=== PATIENT | male | born 1935 | race Caucasian/White ===

== ENCOUNTER 2018-01-11 11:32 | Inpatient (IN) | payer MEDICARE ==
--- NOTE | 2018-01-11 12:59 | ED ---
Male Urogenital HPI - General Source: patient, RN notes reviewed Mode of arrival: ambulatory Limitations: no limitations <Edi Becker - Last Filed: 01/11/18 15:13> <Herve Waller - Last Filed: 01/11/18 15:57> - General Chief complaint: Urogenital Stated complaint: Male Time Seen by Provider: 01/11/18 11:53 - History of Present Illness Initial comments: 82-year-old male present emergency Department chief complaint of scrotal pain, possible infection and shaking. Patient states he started having some symptoms one week ago. He doesn't history of sepsis secondary to scrotal infection. Patient was seen by primary care physician on Friday [facility] and was started on antibiotics. Patient states that he does not feel any better. Patient states is currently on amoxicillin. Patient states that shaking started after starting antibiotics. Family states that he's been having some confusion at times but is very weak and not able to ambulate without assistance which is new for him. Patient denies headache, dizziness, blurred vision. Denies any nausea vomiting. Patient denies any chest pain or shortness breath. (Edi Becker) - Related Data Home Medications Medication Instructions Recorded Confirmed Aspirin EC [Ecotrin Low Dose] 81 mg PO DAILY 11/02/15 01/11/18 Atenolol [Tenormin] 50 mg PO DAILY 11/02/15 01/11/18 Cholecalciferol [Vitamin D3] 1,000 unit PO DAILY 11/02/15 01/11/18 Enalapril [Vasotec] 10 mg PO DAILY 11/02/15 01/11/18 clonazePAM [KlonoPIN] 0.5 mg PO BID 11/02/15 01/11/18 Cyanocobalamin [Vitamin B-12] 500 mcg PO DAILY 11/03/15 01/11/18 Simvastatin [Zocor] 80 mg PO DAILY 11/03/15 01/11/18 Vitamin C Chewable 250 mg PO DAILY 11/03/15 01/11/18 glipiZIDE [Glucotrol] 5 mg PO AC-BID 11/03/15 01/11/18 Amoxicillian Unknown Dose 1 tab PO DIRECTED 01/11/18 01/11/18 Multivitamins, Thera [Multivitamin 1 tab PO DAILY 01/11/18 01/11/18 (formulary)] Allergies Allergy/AdvReac Type Severity Reaction Status Date / Time No Known Allergies Allergy Verified 01/11/18 12:30 Review of Systems ROS Other: All systems not noted in ROS Statement are negative. <Edi Becker - Last Filed: 01/11/18 15:13> ROS Other: All systems not noted in ROS Statement are negative. <Herve Waller - Last Filed: 01/11/18 15:57> ROS Statement: Those systems with pertinent positive or pertinent negative responses have been documented in the HPI. Past Medical History Past Medical History: Diabetes Mellitus, Hypertension History of Any Multi-Drug Resistant Organisms: None Reported Past Surgical History: Appendectomy Additional Past Surgical History / Comment(s): Bilateral cataract removal and lens implants, left knee surgery with Dr. Brooks in the 1960s, electric shock treatment for depression. Past Anesthesia/Blood Transfusion Reactions: No Reported Reaction Past Psychological History: Anxiety, Depression Smoking Status: Never smoker Past Alcohol Use History: None Reported Past Drug Use History: None Reported <Edi Becker - Last Filed: 01/11/18 15:13> General Exam Limitations: no limitations General appearance: alert, in no apparent distress Head exam: Present: atraumatic, normocephalic, normal inspection Respiratory exam: Present: normal lung sounds bilaterally. Absent: respiratory distress, wheezes, rales, rhonchi, stridor Cardiovascular Exam: Present: regular rate, normal rhythm, normal heart sounds. Absent: systolic murmur, diastolic murmur, rubs, gallop, clicks GI/Abdominal exam: Present: soft, normal bowel sounds. Absent: distended, tenderness, guarding, rebound, rigid exam: Present: testicular tenderness. Absent: urethral discharge, scrotal swelling, vertical testicular lie, circumcision Back exam: Absent: CVA tenderness (R), CVA tenderness (L) Neurological exam: Present: alert, oriented X3, CN II-XII intact, reflexes normal, other (Patient has tremor). Absent: motor sensory deficit Skin exam: Present: warm, dry, intact, normal color. Absent: rash <Edi Becker - Last Filed: 01/11/18 15:13> Course <Edi Becker - Last Filed: 01/11/18 15:13> <Herve Waller - Last Filed: 01/11/18 15:57> Vital Signs 01/11/18 01/11/18 11:41 14:45 Temperature 98.4 F Pulse Rate 93 90 Respiratory 20 16 Rate Blood Pressure 162/69 158/71 O2 Sat by Pulse 95 95 Oximetry - Reevaluation(s) Reevaluation #1: 01/11/18 15:57 I proceeded [id number] evaluation the patient did discuss findings with him and his family. Acid discuss case with the hospitalist service Dr. velasquez as it did come to the emergency department see the patient I also did discuss case with Dr. Bourgeois on-call for urology. (Herve Waller) Medical Decision Making - Lab Data Result diagrams: 01/11/18 13:18 01/11/18 13:18 <Edi Becker - Last Filed: 01/11/18 15:13> - Lab Data Result diagrams: 01/11/18 13:18 01/11/18 13:18 <Herve Waller - Last Filed: 01/11/18 15:57> - Lab Data Lab Results 01/11/18 01/11/18 01/11/18 Range/Units 13:18 13:18 13:18 WBC 4.8 (3.8-10.6) k/uL RBC 4.05 L (4.30-5.90) m/uL Hgb 12.9 L (13.0-17.5) gm/dL Hct 38.5 L (39.0-53.0) % MCV 95.2 (80.0-100.0) fL MCH 31.9 (25.0-35.0) pg MCHC 33.5 (31.0-37.0) g/dL RDW 13.1 (11.5-15.5) % Plt Count 258 (150-450) k/uL Neutrophils % 68 % Lymphocytes % 24 % Monocytes % 5 % Eosinophils % 1 % Basophils % 0 % Neutrophils # 3.2 (1.3-7.7) k/uL Lymphocytes # 1.1 (1.0-4.8) k/uL Monocytes # 0.2 (0-1.0) k/uL Eosinophils # 0.1 (0-0.7) k/uL Basophils # 0.0 (0-0.2) k/uL PT (9.0-12.0) sec INR (<1.2) APTT (22.0-30.0) sec Sodium 136 L (137-145) mmol/L Potassium 5.4 H (3.5-5.1) mmol/L Chloride 99 (98-107) mmol/L Carbon Dioxide 24 (22-30) mmol/L Anion Gap 13 mmol/L BUN 49 H (9-20) mg/dL Creatinine 2.50 H (0.66-1.25) mg/dL Est GFR (CKD-EPI)AfAm 27 (>60 ml/min/1.73 sqM) Est GFR (CKD-EPI)NonAf 23 (>60 ml/min/1.73 sqM) Glucose 228 H (74-99) mg/dL Plasma Lactic Acid Mic 1.0 (0.7-2.0) mmol/L Calcium 9.6 (8.4-10.2) mg/dL Magnesium 2.1 (1.6-2.3) mg/dL Total Bilirubin 0.7 (0.2-1.3) mg/dL AST 18 (17-59) U/L ALT 27 (21-72) U/L Alkaline Phosphatase 66 (38-126) U/L Troponin I (0.000-0.034) ng/mL Total Protein 6.9 (6.3-8.2) g/dL Albumin 4.1 (3.5-5.0) g/dL Urine Color Urine Appearance (Clear) Urine pH (5.0-8.0) Ur Specific [place] (1.001-1.035) Urine Protein (Negative) Urine Glucose (UA) (Negative) Urine Ketones (Negative) Urine Blood (Negative) Urine Nitrite (Negative) Urine Bilirubin (Negative) Urine Urobilinogen (<2.0) mg/dL Ur Leukocyte Esterase (Negative) Urine RBC (0-5) /hpf Urine WBC (0-5) /hpf Ur Squamous Epith Cells (0-4) /hpf Urine Bacteria (None) /hpf 01/11/18 01/11/18 01/11/18 Range/Units 13:18 13:18 14:25 WBC (3.8-10.6) k/uL RBC (4.30-5.90) m/uL Hgb (13.0-17.5) gm/dL Hct (39.0-53.0) % MCV (80.0-100.0) fL MCH (25.0-35.0) pg MCHC (31.0-37.0) g/dL RDW (11.5-15.5) % Plt Count (150-450) k/uL Neutrophils % % Lymphocytes % % Monocytes % % Eosinophils % % Basophils % % Neutrophils # (1.3-7.7) k/uL Lymphocytes # (1.0-4.8) k/uL Monocytes # (0-1.0) k/uL Eosinophils # (0-0.7) k/uL Basophils # (0-0.2) k/uL PT 10.2 (9.0-12.0) sec INR 1.0 (<1.2) APTT 21.7 L (22.0-30.0) sec Sodium (137-145) mmol/L Potassium (3.5-5.1) mmol/L Chloride (98-107) mmol/L Carbon Dioxide (22-30) mmol/L Anion Gap mmol/L BUN (9-20) mg/dL Creatinine (0.66-1.25) mg/dL Est GFR (CKD-EPI)AfAm (>60 ml/min/1.73 sqM) Est GFR (CKD-EPI)NonAf (>60 ml/min/1.73 sqM) Glucose (74-99) mg/dL Plasma Lactic Acid Mic (0.7-2.0) mmol/L Calcium (8.4-10.2) mg/dL Magnesium (1.6-2.3) mg/dL Total Bilirubin (0.2-1.3) mg/dL AST (17-59) U/L ALT (21-72) U/L Alkaline Phosphatase (38-126) U/L Troponin I <0.012 (0.000-0.034) ng/mL Total Protein (6.3-8.2) g/dL Albumin (3.5-5.0) g/dL Urine Color Yellow Urine Appearance Cloudy (Clear) Urine pH 5.5 (5.0-8.0) Ur Specific [place] 1.012 (1.001-1.035) Urine Protein Trace H (Negative) Urine Glucose (UA) Negative (Negative) Urine Ketones Negative (Negative) Urine Blood Negative (Negative) Urine Nitrite Negative (Negative) Urine Bilirubin Negative (Negative) Urine Urobilinogen <2.0 (<2.0) mg/dL Ur Leukocyte Esterase Moderate H (Negative) Urine RBC <1 (0-5) /hpf Urine WBC 53 H (0-5) /hpf Ur Squamous Epith Cells <1 (0-4) /hpf Urine Bacteria Moderate H (None) /hpf - EKG Data EKG Comments: EKG performed at 1451 sinus rhythm with rate 93 IA interval 210 QRS 84 QT/QTC 320/397 (Edi Becker) Disposition Time of Disposition: 15:16 <Edi Becker - Last Filed: 01/11/18 15:13> <Herve Waller - Last Filed: 01/11/18 15:57> Clinical Impression: Scrotal mass, Acute renal failure, Tremor, UTI (urinary tract infection), Weakness Disposition: ADMITTED IP TO THIS HOSP Condition: Stable
[2018-01-11 13:31] LABS: Basophils % (A) 0 %; Eosinophils # (A) 0.1 k/uL (0-0.7); Eosinophils % (A) 1 %; HCT 38.5 % (39.0-53.0); HGB 12.9 gm/dL (13.0-17.5); Lymphocytes # (A) 1.1 k/uL (1.0-4.8); Lymphocytes % (A) 24 %; MCH 31.9 pg (25.0-35.0); MCHC 33.5 g/dL (31.0-37.0); MCV 95.2 fL (80.0-100.0); Mean Platelet Volume 7.2; Monocytes # (A) 0.2 k/uL (0-1.0); Monocytes % (A) 5 %; Neutrophils # (A) 3.2 k/uL (1.3-7.7); Neutrophils % (A) 68 %; Platelet Count 258 k/uL (150-450); RBC 4.05 m/uL (4.30-5.90); RDW 13.1 % (11.5-15.5); WBC 4.8 k/uL (3.8-10.6)
[2018-01-11 13:43] LABS: Albumin 4.1 g/dL (3.5-5.0); Calcium 9.6 mg/dL (8.4-10.2); Magnesium 2.1 mg/dL (1.6-2.3); Potassium 5.4 mmol/L (3.5-5.1); Total Bilirubin 0.7 mg/dL (0.2-1.3); Total Protein 6.9 g/dL (6.3-8.2)
[2018-01-11 13:44] LABS: Partial Thromboplastin Time 21.7 sec (22.0-30.0); Prothrombin Time 10.2 sec (9.0-12.0)
[2018-01-11] MEDS ORDERED: SODIUM CHLORIDE 0.9% 1,000 ML IV ONE (13:57)
[2018-01-11 14:41] LABS: Appearance,Urine Cloudy (Clear); Bacteria,Urine Moderate /hpf; Bilirubin,Urine Negative (Negative); Blood,Urine Negative (Negative); Color,Urine Yellow; Glucose,Urine (UA) Negative (Negative); Ketones,Urine Negative (Negative); Leukocyte Esterase,Urine Moderate (Negative); Nitrite,Urine Negative (Negative); PH, Urine 5.5 (5.0-8.0); Protein,Urine Trace (Negative); RBC,Urine <1 /hpf (0-5); Specific Gravity,Urine 1.012 (1.001-1.035); Squamous Epithelial Cell,Urine <1 /hpf (0-4); Urobilinogen,Urine <2.0 mg/dL (<2.0); WBC,Urine 53 /hpf (0-5)
--- NOTE | 2018-01-11 14:50 | US ---
EXAMINATION TYPE: US scrotum with doppler. Grayscale and color Doppler Duplex imaging performed of t he scrotum. DATE OF EXAM: 01/11/2018 COMPARISON: NONE CLINICAL HISTORY: Pain. EXAM MEASUREMENTS: TESTICLES: Right Testicle: 3.6 x 1.4 x 2.3 cm Left Testicle: 4.2 x 1.8 x 3.0 cm EPIDIDYMIS HEAD: Right Epididymis: 1.4 cm Left Epididymis: 1.1 cm Doppler performed to assess for testicular vascularity; good bilateral color flow and waveforms are s een. There is no evidence of testicular torsion. Presence of hydroceles: No Presence of varicoceles: No Complex area medial right testicle with increased flow and hypoechoic area within measuring 1.0 x 0.6 x 0.8 cm Cystic area with septations noted in left epididymis measuring 0.3 x 0.5 x 0.5 cm. IMPRESSION: 1. COMPLEX MASS WITHIN THE RIGHT TESTICLE WORRISOME FOR NEOPLASIA. 2. COMPLEX LEFT EPIDIDYMAL CYST. 3. UROLOGICAL CONSULT IS SUGGESTED.
[2018-01-11] MEDS ORDERED: NALOXONE 0.4 MG/ML 1 ML VIAL IV PRN (15:16)
[2018-01-11] MEDS ORDERED: HYDROcodone/APAP 5-325MG 1 EACH TAB PO PRN (15:16)
[2018-01-11] MEDS ORDERED: cefTRIAXone IN SWFI 1,000 MG/10 ML SYRINGE IVP STA (15:23)
--- NOTE | 2018-01-11 16:00 | P.HPIM ---
History of Present Illness 2-year-old male present emergency Department chief complaint of scrotal pain, possible infection and shaking. Patient was started on amoxicillin [facility] for his bronchitis and possible urinary tract infection patient doesn't exactly remember if he had any fever at that time although patient was having cough. And he was told he has UTI as well.. After taking a few doses of amoxicillin patient stopped antibiotics because he was shaking quite a bit Patient Family states that he's been having some confusion at times but is very weak and not able to ambulate without assistance which is new for him. Patient denies headache, dizziness, blurred vision. Denies any nausea vomiting. Patient denies any chest pain or shortness breath. Patient presently denied any dysuria or increased urinary frequency. Patient's urine is not significant abnormality at this time although patient was started on Rocephin which will be continued for now. Patient had a scrotal ultrasound which did show right-sided scrotal mass which he with a complex cyst. Urology was consulted Review of Systems REVIEW OF SYSTEMS: CONSTITUTIONAL: No fever, no malaise, no fatigue. HEENT: No recent visual problems or hearing problems. Denied any sore throat. CARDIOVASCULAR: No chest pain, orthopnea, PND, no palpitations, no syncope. PULMONARY: No shortness of breath, no cough, no hemoptysis. GASTROINTESTINAL: No diarrhea, no nausea, no vomiting, no abdominal pain. Normoactive bowel sounds. NEUROLOGICAL: No headaches, no weakness, no numbness. HEMATOLOGICAL: Denies any bleeding or petechiae. GENITOURINARY: As mentioned in HPI MUSCULOSKELETAL/RHEUMATOLOGICAL: Denies any joint pain, swelling, or any muscle pain. ENDOCRINE: Denies any polyuria or polydipsia. The rest of the 14-point review of systems is negative. Past Medical History Past Medical History: Diabetes Mellitus, Hypertension History of Any Multi-Drug Resistant Organisms: None Reported Past Surgical History: Appendectomy Additional Past Surgical History / Comment(s): Bilateral cataract removal and lens implants, left knee surgery with Dr. Brooks in the 1960s, electric shock treatment for depression. Past Anesthesia/Blood Transfusion Reactions: No Reported Reaction Past Psychological History: Anxiety, Depression Smoking Status: Never smoker Past Alcohol Use History: None Reported Past Drug Use History: None Reported Medications and Allergies Home Medications Medication Instructions Recorded Confirmed Type Aspirin EC [Ecotrin Low Dose] 81 mg PO DAILY 11/02/15 01/11/18 History Atenolol [Tenormin] 50 mg PO DAILY 11/02/15 01/11/18 History Cholecalciferol [Vitamin D3] 1,000 unit PO DAILY 11/02/15 01/11/18 History Enalapril [Vasotec] 10 mg PO DAILY 11/02/15 01/11/18 History clonazePAM [KlonoPIN] 0.5 mg PO BID 11/02/15 01/11/18 History Cyanocobalamin [Vitamin B-12] 500 mcg PO DAILY 11/03/15 01/11/18 History Simvastatin [Zocor] 80 mg PO DAILY 11/03/15 01/11/18 History Vitamin C Chewable 250 mg PO DAILY 11/03/15 01/11/18 History glipiZIDE [Glucotrol] 5 mg PO AC-BID 11/03/15 01/11/18 History Amoxicillian Unknown Dose 1 tab PO DIRECTED 01/11/18 01/11/18 History Multivitamins, Thera [Multivitamin 1 tab PO DAILY 01/11/18 01/11/18 History (formulary)] Allergies Allergy/AdvReac Type Severity Reaction Status Date / Time No Known Allergies Allergy Verified 01/11/18 12:30 Physical Exam Vitals: Vital Signs Temp Pulse Resp BP Pulse Ox 01/11/18 14:45 90 16 158/71 95 01/11/18 11:41 98.4 F 93 20 162/69 95 Intake and Output 01/11/18 01/11/18 01/11/18 06:59 14:59 22:59 Output Total 863 Balance -863 Output: Urine 600 Straight 600 Post Void Residual 263 Other: Weight 77.111 kg PHYSICAL EXAMINATION: GENERAL: The patient is alert and oriented x3, not in any acute distress. Well developed, well nourished. HEENT: Pupils are round and equally reacting to light. EOMI. No scleral icterus. No conjunctival pallor. Normocephalic, atraumatic. No pharyngeal erythema. No thyromegaly. CARDIOVASCULAR: S1 and S2 present. No murmurs, rubs, or gallops. PULMONARY: Chest is clear to auscultation, no wheezing or crackles. ABDOMEN: Soft, nontender, nondistended, normoactive bowel sounds. No palpable organomegaly. MUSCULOSKELETAL: No joint swelling or deformity. EXTREMITIES: No cyanosis, clubbing, or pedal edema. NEUROLOGICAL: Gross neurological examination did not reveal any focal deficits. SKIN: No rashes. Genitourinary: Patient has a right-sided small scrotal mass Results CBC & Chem 7: 01/11/18 13:18 01/11/18 13:18 Labs: Abnormal Lab Results - Last 24 Hours (Table) 01/11/18 01/11/18 01/11/18 Range/Units 13:18 13:18 13:18 RBC 4.05 L (4.30-5.90) m/uL Hgb 12.9 L (13.0-17.5) gm/dL Hct 38.5 L (39.0-53.0) % APTT 21.7 L (22.0-30.0) sec Sodium 136 L (137-145) mmol/L Potassium 5.4 H (3.5-5.1) mmol/L BUN 49 H (9-20) mg/dL Creatinine 2.50 H (0.66-1.25) mg/dL Glucose 228 H (74-99) mg/dL Urine Protein (Negative) Ur Leukocyte Esterase (Negative) Urine WBC (0-5) /hpf Urine Bacteria (None) /hpf 01/11/18 Range/Units 14:25 RBC (4.30-5.90) m/uL Hgb (13.0-17.5) gm/dL Hct (39.0-53.0) % APTT (22.0-30.0) sec Sodium (137-145) mmol/L Potassium (3.5-5.1) mmol/L BUN (9-20) mg/dL Creatinine (0.66-1.25) mg/dL Glucose (74-99) mg/dL Urine Protein Trace H (Negative) Ur Leukocyte Esterase Moderate H (Negative) Urine WBC 53 H (0-5) /hpf Urine Bacteria Moderate H (None) /hpf Assessment and Plan Plan: -Scrotal mass: Patient appears to have a complex mass in the right scrotum neurology was consulted, my suspicion is low that patient has UTI may not require any antibiotics will continue on total urology evaluation. -Acute renal failure: Secondary to prerenal azotemia most probably lisinopril will be held, patient also has hyperkalemia secondary to lisinopril patient was on IV fluids and recheck a basic metabolic profile tomorrow agents creatinine is 2.5 baseline is around 1.5. -Chronic kidney disease stage III: Secondary to diabetic nephropathy -Type 2 diabetes mellitus hold off on oral hypoglycemic agents patient is starting scale insulin -Hypertension continue atenolol hold off lisinopril because of acute renal dysfunction and hyperkalemia -Hyperlipidemia continue with atorvastatin
[2018-01-11] MEDS: SODIUM CHLORIDE 0.9% 1,000 ML IV SCH (16:21)
[2018-01-11 16:52] LABS: Glucose,Whole Blood 140 mg/dL (75-99)
[2018-01-11 17:05] VITALS: BMI 25.8
[2018-01-11] MEDS ORDERED: glipiZIDE 5 MG TAB PO SCH (17:30)
[2018-01-11] MEDS: INSULIN ASPART 100 UNIT/ML 1 ML 10 ML VIAL SQ SCH ×2 (19:00→20:46)
[2018-01-11] MEDS: clonazePAM 0.5 MG TAB PO SCH (20:38)
[2018-01-11 20:46] LABS: Glucose,Whole Blood 289 mg/dL (75-99)
[2018-01-12] MEDS ORDERED: cefTRIAXone IN SWFI 1,000 MG/10 ML SYRINGE IVP SCH
[2018-01-12] MEDS: SODIUM CHLORIDE 0.9% 1,000 ML IV SCH ×2 (06:24→17:13)
--- NOTE | 2018-01-12 07:07 | P.GSCN ---
History of Present Illness Consult date: 01/12/18 History of present illness: The patient is an 82-year-old gentleman who was brought in the hospital because of a urinary tract infection and acute renal failure. Apparently the patient was having some confusion. The patient has a hypotonic neurogenic bladder and does intermittent catheterization 3-4 times per day. did a TURP on him in 2005. Apparently the patient had some scrotal tenderness. A potential mass was identified and a scrotal ultrasound was obtained. The scrotal ultrasound suggested a right testicular mass. The patient has had some tenderness for a few days. He is not real specific as to how long. He relates it to tiight fitting jeans. He denies fever or chills. He denies difficulty with catheterization. 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 Brooks in the 1960s, electric shock treatment for depression. Past Anesthesia/Blood Transfusion Reactions: No Reported Reaction Past Psychological History: Anxiety, Depression Smoking Status: Never smoker Past Alcohol Use History: None Reported Past Drug Use History: None Reported Medications and Allergies Home Medications Medication Instructions Recorded Confirmed Type Aspirin EC [Ecotrin Low Dose] 81 mg PO DAILY 11/02/15 01/11/18 History Atenolol [Tenormin] 50 mg PO DAILY 11/02/15 01/11/18 History Cholecalciferol [Vitamin D3] 1,000 unit PO DAILY 11/02/15 01/11/18 History Enalapril [Vasotec] 10 mg PO DAILY 11/02/15 01/11/18 History clonazePAM [KlonoPIN] 0.5 mg PO BID 11/02/15 01/11/18 History Cyanocobalamin [Vitamin B-12] 500 mcg PO DAILY 11/03/15 01/11/18 History Simvastatin [Zocor] 80 mg PO DAILY 11/03/15 01/11/18 History Vitamin C Chewable 250 mg PO DAILY 11/03/15 01/11/18 History glipiZIDE [Glucotrol] 5 mg PO AC-BID 11/03/15 01/11/18 History Amoxicillian Unknown Dose 1 tab PO DIRECTED 01/11/18 01/11/18 History Multivitamins, Thera [Multivitamin 1 tab PO DAILY 01/11/18 01/11/18 History (formulary)] Allergies Allergy/AdvReac Type Severity Reaction Status Date / Time No Known Allergies Allergy Verified 01/11/18 12:30 Surgical - Exam Vital Signs Temp Pulse Resp BP Pulse Ox 98.4 F 93 20 162/69 95 01/11/18 11:41 01/11/18 11:41 01/11/18 11:41 01/11/18 11:41 01/11/18 11:41 - General well developed, well nourished, no distress - Eyes PERRL - ENT no hearing loss - Neck trachea midline - Respiratory normal expansion - Cardiovascular Rhythm: regular - Abdomen Abdomen: soft, non tender - Genitourinary The penis is normal. The scrotum was unremarkable. The left testicle and epididymis unremarkable. The right testicle on the posterior aspect isn't confluence with the epididymis is a tender mass. Clinically it feels more like an epididymal inflammation and then a separate testicular mass. - Integumentary no rash - Neurologic normal coordination, normal sensation - Musculoskeletal normal posture - Psychiatric speech is normal, memory intact Results - Labs 01/11/18 13:18 01/11/18 13:18 Abnormal Lab Results - Last 24 Hours (Table) 01/11/18 01/11/18 01/11/18 Range/Units 13:18 13:18 13:18 RBC 4.05 L (4.30-5.90) m/uL Hgb 12.9 L (13.0-17.5) gm/dL Hct 38.5 L (39.0-53.0) % APTT 21.7 L (22.0-30.0) sec Sodium 136 L (137-145) mmol/L Potassium 5.4 H (3.5-5.1) mmol/L BUN 49 H (9-20) mg/dL Creatinine 2.50 H (0.66-1.25) mg/dL Glucose 228 H (74-99) mg/dL POC Glucose (mg/dL) (75-99) mg/dL Urine Protein (Negative) Ur Leukocyte Esterase (Negative) Urine WBC (0-5) /hpf Urine Bacteria (None) /hpf 01/11/18 01/11/18 01/11/18 Range/Units 14:25 16:50 20:44 RBC (4.30-5.90) m/uL Hgb (13.0-17.5) gm/dL Hct (39.0-53.0) % APTT (22.0-30.0) sec Sodium (137-145) mmol/L Potassium (3.5-5.1) mmol/L BUN (9-20) mg/dL Creatinine (0.66-1.25) mg/dL Glucose (74-99) mg/dL POC Glucose (mg/dL) 140 H 289 H (75-99) mg/dL Urine Protein Trace H (Negative) Ur Leukocyte Esterase Moderate H (Negative) Urine WBC 53 H (0-5) /hpf Urine Bacteria Moderate H (None) /hpf Microbiology - Last 24 Hours (Table) 01/11/18 14:25 Urine Culture - Preliminary Urine,Catheterized Diabetes panel 01/11/18 Range/Units 13:18 Sodium 136 L (137-145) mmol/L Potassium 5.4 H (3.5-5.1) mmol/L Chloride 99 (98-107) mmol/L Carbon Dioxide 24 (22-30) mmol/L BUN 49 H (9-20) mg/dL Creatinine 2.50 H (0.66-1.25) mg/dL Glucose 228 H (74-99) mg/dL Calcium 9.6 (8.4-10.2) mg/dL AST 18 (17-59) U/L ALT 27 (21-72) U/L Alkaline Phosphatase 66 (38-126) U/L Total Protein 6.9 (6.3-8.2) g/dL Albumin 4.1 (3.5-5.0) g/dL Calcium panel 01/11/18 Range/Units 13:18 Calcium 9.6 (8.4-10.2) mg/dL Albumin 4.1 (3.5-5.0) g/dL Pituitary panel 01/11/18 Range/Units 13:18 Sodium 136 L (137-145) mmol/L Potassium 5.4 H (3.5-5.1) mmol/L Chloride 99 (98-107) mmol/L Carbon Dioxide 24 (22-30) mmol/L BUN 49 H (9-20) mg/dL Creatinine 2.50 H (0.66-1.25) mg/dL Glucose 228 H (74-99) mg/dL Calcium 9.6 (8.4-10.2) mg/dL Adrenal panel 01/11/18 Range/Units 13:18 Sodium 136 L (137-145) mmol/L Potassium 5.4 H (3.5-5.1) mmol/L Chloride 99 (98-107) mmol/L Carbon Dioxide 24 (22-30) mmol/L BUN 49 H (9-20) mg/dL Creatinine 2.50 H (0.66-1.25) mg/dL Glucose 228 H (74-99) mg/dL Calcium 9.6 (8.4-10.2) mg/dL Total Bilirubin 0.7 (0.2-1.3) mg/dL AST 18 (17-59) U/L ALT 27 (21-72) U/L Alkaline Phosphatase 66 (38-126) U/L Total Protein 6.9 (6.3-8.2) g/dL Albumin 4.1 (3.5-5.0) g/dL - Imaging US - kidney/bladder: image reviewed Assessment and Plan Assessment: Impression: Urinary tract infection. Neurogenic bladder. Diabetes. Renal insufficiency. Right testicular mass, epididymitis versus intratesticular mass. Given that this is tender, his urine is infected and my clinical examination I suspect this could be an epididymitis. I will review this with the radiologist however.
[2018-01-12 07:08] LABS: Glucose,Whole Blood 140 mg/dL (75-99)
[2018-01-12 07:32] LABS: HCT 33.4 % (39.0-53.0); HGB 11.1 gm/dL (13.0-17.5); MCH 31.7 pg (25.0-35.0); MCHC 33.3 g/dL (31.0-37.0); MCV 95.1 fL (80.0-100.0); Mean Platelet Volume 7.1; Platelet Count 237 k/uL (150-450); RBC 3.51 m/uL (4.30-5.90)
[2018-01-12 07:42] LABS: Calcium 8.8 mg/dL (8.4-10.2); Potassium 4.8 mmol/L (3.5-5.1)
[2018-01-12] MEDS: INSULIN ASPART 100 UNIT/ML 1 ML 10 ML VIAL SQ SCH ×4 (07:53→21:22)
[2018-01-12] MEDS ORDERED: LISINOPRIL 20 MG TAB PO SCH (09:00)
[2018-01-12] MEDS: CYANOCOBALAMIN 500 MCG TAB PO SCH (09:20)
[2018-01-12] MEDS: ATORVASTATIN 40 MG TAB PO SCH (09:20)
[2018-01-12] MEDS: ATENOLOL 50 MG TAB PO SCH (09:20)
[2018-01-12] MEDS: CHOLECALCIFEROL 1,000 UNIT TAB PO SCH (09:20)
[2018-01-12] MEDS: cefTRIAXone IN SWFI 1,000 MG/10 ML SYRINGE IVP SCH (09:21)
[2018-01-12] MEDS: clonazePAM 0.5 MG TAB PO SCH ×2 (09:21→21:22)
[2018-01-12] MEDS: ASCORBIC ACID 500 MG TAB PO SCH (09:21)
[2018-01-12 11:11] LABS: Glucose,Whole Blood 174 mg/dL (75-99)
[2018-01-12] MEDS: MULTIVITAMINS, THERA 1 EACH TAB PO SCH (12:59)
--- NOTE | 2018-01-12 14:07 | P.PN ---
Subjective 82-year-old gentleman was admitted for scrotal mass, urology evaluated the patient and they believe patient has epididymitis and patient is on IV antibiotics patient's renal function did improve. She had a Leonard catheter as recommended by urology patient is straight caths at home. Patient feels better today Constitutional: Denied any fatigue denied any fever. Cardio vascular: denied any chest pain, palpitations Gastrointestinal denied any nausea vomiting Pulmonary: Denied any shortness of breath cough Neurologic denied any new focal deficits Objective - Vital Signs Vital signs: Vital Signs Temp 98.5 F 01/12/18 06:54 Pulse 80 01/12/18 06:54 Resp 16 01/12/18 08:00 BP 145/60 01/12/18 06:54 Pulse Ox 95 01/12/18 06:54 Intake & Output 01/11/18 01/12/18 01/12/18 18:59 06:59 18:59 Intake Total 1050 237 Output Total 863 1800 200 Balance -863 -750 37 Weight 77.111 kg Intake: Intake, IV Titration 750 Amount Sodium Chloride 0.9% 1, 750 000 ml @ 75 mls/hr IV . [id number] Rx#:[id number] Oral 300 237 Output: Urine 600 1800 200 Straight 600 1800 Post Void Residual 263 Other: Voiding Method Self-Catheterization Self-Catheterization # Voids 1 - Exam GENERAL: The patient is alert and oriented x3, not in any acute distress. Well developed, well nourished. HEENT: Pupils are round and equally reacting to light. EOMI. No scleral icterus. No conjunctival pallor. Normocephalic, atraumatic. No pharyngeal erythema. No thyromegaly. CARDIOVASCULAR: S1 and S2 present. No murmurs, rubs, or gallops. PULMONARY: Chest is clear to auscultation, no wheezing or crackles. ABDOMEN: Soft, nontender, nondistended, normoactive bowel sounds. No palpable organomegaly. MUSCULOSKELETAL: No joint swelling or deformity. EXTREMITIES: No cyanosis, clubbing, or pedal edema. NEUROLOGICAL: Gross neurological examination did not reveal any focal deficits. SKIN: No rashes. Genitourinary: Patient has a right-sided small scrotal mass - Labs CBC & Chem 7: 01/12/18 06:46 01/12/18 06:46 Labs: Abnormal Lab Results - Last 24 Hours (Table) 01/11/18 01/11/18 01/11/18 Range/Units 14:25 16:50 20:44 RBC (4.30-5.90) m/uL Hgb (13.0-17.5) gm/dL Hct (39.0-53.0) % BUN (9-20) mg/dL Creatinine (0.66-1.25) mg/dL Glucose (74-99) mg/dL POC Glucose (mg/dL) 140 H 289 H (75-99) mg/dL Urine Protein Trace H (Negative) Ur Leukocyte Esterase Moderate H (Negative) Urine WBC 53 H (0-5) /hpf Urine Bacteria Moderate H (None) /hpf 01/12/18 01/12/18 01/12/18 Range/Units 06:46 06:46 07:07 RBC 3.51 L (4.30-5.90) m/uL Hgb 11.1 L (13.0-17.5) gm/dL Hct 33.4 L (39.0-53.0) % BUN 35 H (9-20) mg/dL Creatinine 1.79 H (0.66-1.25) mg/dL Glucose 136 H (74-99) mg/dL POC Glucose (mg/dL) 140 H (75-99) mg/dL Urine Protein (Negative) Ur Leukocyte Esterase (Negative) Urine WBC (0-5) /hpf Urine Bacteria (None) /hpf 01/12/18 Range/Units 11:10 RBC (4.30-5.90) m/uL Hgb (13.0-17.5) gm/dL Hct (39.0-53.0) % BUN (9-20) mg/dL Creatinine (0.66-1.25) mg/dL Glucose (74-99) mg/dL POC Glucose (mg/dL) 174 H (75-99) mg/dL Urine Protein (Negative) Ur Leukocyte Esterase (Negative) Urine WBC (0-5) /hpf Urine Bacteria (None) /hpf Microbiology - Last 24 Hours (Table) 01/11/18 14:25 Urine Culture - Preliminary Urine,Catheterized Assessment and Plan Plan: -Scrotal mass: Possible epididymitis for which patient IV antibiotics -Acute renal failure: Secondary to prerenal azotemia improved creatinine patient 's creatinine is close to his baseline continue with IV fluids patient's creatinine is presently 1.7 -Chronic kidney disease stage III: Secondary to diabetic nephropathy -Type 2 diabetes mellitus hold off on oral hypoglycemic agents patient is starting scale insulin -Hypertension continue atenolol hold off lisinopril because of acute renal dysfunction and hyperkalemia -Hyperlipidemia continue with atorvastatin
[2018-01-12 17:08] LABS: Glucose,Whole Blood 124 mg/dL (75-99)
[2018-01-12 20:14] LABS: Glucose,Whole Blood 256 mg/dL (75-99)
[2018-01-13 07:10] LABS: Glucose,Whole Blood 186 mg/dL (75-99)
[2018-01-13 07:38] LABS: HCT 36.2 % (39.0-53.0); MCH 32.4 pg (25.0-35.0); MCHC 33.2 g/dL (31.0-37.0); MCV 97.7 fL (80.0-100.0); Platelet Count 212 k/uL (150-450); WBC 4.9 k/uL (3.8-10.6)
[2018-01-13] MEDS: SODIUM CHLORIDE 0.9% 1,000 ML IV SCH ×2 (07:38→22:13)
[2018-01-13 08:08] LABS: Calcium 8.5 mg/dL (8.4-10.2); Potassium 4.9 mmol/L (3.5-5.1)
[2018-01-13] MEDS: INSULIN ASPART 100 UNIT/ML 1 ML 10 ML VIAL SQ SCH ×4 (08:41→20:27)
[2018-01-13] MEDS: CYANOCOBALAMIN 500 MCG TAB PO SCH (08:45)
[2018-01-13] MEDS: clonazePAM 0.5 MG TAB PO SCH ×2 (08:45→20:27)
[2018-01-13] MEDS: cefTRIAXone IN SWFI 1,000 MG/10 ML SYRINGE IVP SCH (08:45)
[2018-01-13] MEDS: ATENOLOL 50 MG TAB PO SCH (08:46)
[2018-01-13] MEDS: CHOLECALCIFEROL 1,000 UNIT TAB PO SCH (08:46)
[2018-01-13] MEDS: ATORVASTATIN 40 MG TAB PO SCH (08:46)
[2018-01-13] MEDS: ASCORBIC ACID 500 MG TAB PO SCH (08:46)
[2018-01-13 11:15] LABS: Glucose,Whole Blood 211 mg/dL (75-99)
[2018-01-13] MEDS: MULTIVITAMINS, THERA 1 EACH TAB PO SCH (12:52)
--- NOTE | 2018-01-13 14:18 | P.PN ---
Subjective 82-year-old gentleman was admitted for scrotal mass, urology evaluated the patient and they believe patient has epididymitis and patient is on IV antibiotics patient's renal function did improve. She had a Leonard catheter as recommended by urology patient is straight caths at home. Patient feels better today 01/13/2018 Patient doesn't have any overnight events improved creatinine elevating the urine cultures Constitutional: Denied any fatigue denied any fever. Cardio vascular: denied any chest pain, palpitations Gastrointestinal denied any nausea vomiting Pulmonary: Denied any shortness of breath cough Neurologic denied any new focal deficits Objective - Vital Signs Vital signs: Vital Signs Temp 98.2 F 01/13/18 07:33 Pulse 73 01/13/18 07:33 Resp 20 01/13/18 07:41 BP 163/72 01/13/18 07:33 Pulse Ox 98 01/13/18 07:33 Intake & Output 01/12/18 01/13/18 01/13/18 18:59 06:59 18:59 Intake Total 957 400 Output Total 1800 725 Balance -843 -725 400 Intake: IV 600 Sodium Chloride 0.9% 1, 600 000 ml @ 75 mls/hr IV . [id number] [facility] Rx#:[id number] Oral 357 400 Output: Urine 1800 725 Other: Voiding Method Indwelling Catheter Indwelling Catheter Indwelling Catheter # Voids 1 # Bowel Movements 1 - Exam GENERAL: The patient is alert and oriented x3, not in any acute distress. Well developed, well nourished. HEENT: Pupils are round and equally reacting to light. EOMI. No scleral icterus. No conjunctival pallor. Normocephalic, atraumatic. No pharyngeal erythema. No thyromegaly. CARDIOVASCULAR: S1 and S2 present. No murmurs, rubs, or gallops. PULMONARY: Chest is clear to auscultation, no wheezing or crackles. ABDOMEN: Soft, nontender, nondistended, normoactive bowel sounds. No palpable organomegaly. MUSCULOSKELETAL: No joint swelling or deformity. EXTREMITIES: No cyanosis, clubbing, or pedal edema. NEUROLOGICAL: Gross neurological examination did not reveal any focal deficits. SKIN: No rashes. Genitourinary: Patient has a right-sided small scrotal mass - Labs CBC & Chem 7: 01/13/18 07:23 01/13/18 07:23 Labs: Abnormal Lab Results - Last 24 Hours (Table) 01/12/18 01/12/18 01/13/18 Range/Units 17:04 20:11 07:08 RBC (4.30-5.90) m/uL Hgb (13.0-17.5) gm/dL Hct (39.0-53.0) % Sodium (137-145) mmol/L BUN (9-20) mg/dL Creatinine (0.66-1.25) mg/dL Glucose (74-99) mg/dL POC Glucose (mg/dL) 124 H 256 H 186 H (75-99) mg/dL 01/13/18 01/13/18 01/13/18 Range/Units 07:23 07:23 11:08 RBC 3.70 L (4.30-5.90) m/uL Hgb 12.0 L (13.0-17.5) gm/dL Hct 36.2 L (39.0-53.0) % Sodium 136 L (137-145) mmol/L BUN 29 H (9-20) mg/dL Creatinine 1.46 H (0.66-1.25) mg/dL Glucose 158 H (74-99) mg/dL POC Glucose (mg/dL) 211 H (75-99) mg/dL Microbiology - Last 24 Hours (Table) 01/11/18 14:25 Urine Culture - Preliminary Urine,Catheterized Gram Neg Bacilli 01/11/18 13:18 Blood Culture - Preliminary Blood No Growth after 24 hours Assessment and Plan Plan: -Scrotal mass: Possible epididymitis for which patient IV antibiotics -Acute renal failure: Secondary to prerenal azotemia improved creatinine patient 's creatinine is close to his baseline continue with IV fluids patient's creatinine is presently 1.4 -Chronic kidney disease stage III: Secondary to diabetic nephropathy -Type 2 diabetes mellitus hold off on oral hypoglycemic agents patient is starting scale insulin -Hypertension continue atenolol hold off lisinopril because of acute renal dysfunction and hyperkalemia -Hyperlipidemia continue with atorvastatin
[2018-01-13 14:44] VITALS: RESP 16
--- NOTE | 2018-01-13 17:14 | P.PN ---
Progress Note - Text Progress Note Date: 01/13/18 The patient has been afebrile since he was admitted and says he feels much better. His scrotal pain is also improved. Urine culture grew klebsiella pneumonia which was resistant to the amoxicillin he was started on last week. Sctotal exam confirms induration of the right epididymis and the overall findings are typical for epididymitis and not a testes mass. Imp: Right epididymitis from Klebsiella UTI and self catherization. Rec: Will discontinue Leonard catheter in AM. Will also stop Rocephin and switch to Bactrim based on urine culture sensitivities. Patient should be treated with Bactrim for another 7 days. I would like to see him in 7-10 days for followup.
[2018-01-13 17:55] LABS: Glucose,Whole Blood 197 mg/dL (75-99)
[2018-01-13] MEDS: SULFAMETHOX-TMP 800-160MG 1 EACH TAB PO SCH (20:27)
[2018-01-13 20:41] LABS: Glucose,Whole Blood 187 mg/dL (75-99)
[2018-01-14 07:11] LABS: Glucose,Whole Blood 158 mg/dL (75-99)
[2018-01-14 07:40] LABS: HCT 37.3 % (39.0-53.0); HGB 12.5 gm/dL (13.0-17.5); MCH 31.9 pg (25.0-35.0); MCHC 33.4 g/dL (31.0-37.0); MCV 95.6 fL (80.0-100.0); Mean Platelet Volume 7.3; Platelet Count 244 k/uL (150-450); RDW 13.1 % (11.5-15.5); WBC 5.4 k/uL (3.8-10.6)
[2018-01-14 07:51] LABS: Calcium 8.8 mg/dL (8.4-10.2); Potassium 4.9 mmol/L (3.5-5.1)
[2018-01-14 08:35] VITALS: BP 160/75; PULSE 66; TEMP 98.2
[2018-01-14] MEDS: INSULIN ASPART 100 UNIT/ML 1 ML 10 ML VIAL SQ SCH ×2 (08:38→13:00)
[2018-01-14] MEDS: CYANOCOBALAMIN 500 MCG TAB PO SCH (08:39)
[2018-01-14] MEDS: ATENOLOL 50 MG TAB PO SCH (08:39)
[2018-01-14] MEDS: CHOLECALCIFEROL 1,000 UNIT TAB PO SCH (08:39)
[2018-01-14] MEDS: ATORVASTATIN 40 MG TAB PO SCH (08:39)
[2018-01-14] MEDS: ASCORBIC ACID 500 MG TAB PO SCH (08:39)
[2018-01-14] MEDS: clonazePAM 0.5 MG TAB PO SCH (08:39)
[2018-01-14] MEDS: SULFAMETHOX-TMP 800-160MG 1 EACH TAB PO SCH (08:40)
[2018-01-14] MEDS: SODIUM CHLORIDE 0.9% 1,000 ML IV SCH (08:47)
[2018-01-14 11:41] LABS: Glucose,Whole Blood 209 mg/dL (75-99)
[2018-01-14] MEDS: MULTIVITAMINS, THERA 1 EACH TAB PO SCH (13:00)
--- NOTE | 2018-01-14 16:32 | P.DS ---
Providers Date of admission: 01/11/18 15:34 Expected date of discharge: 01/14/18 Attending physician: Maylin Guajardo MD Consults: 01/11/18 15:18 Consult Physician Urgent Consulting Provider: David Bourgeois Consult Reason/Comments: Scrotal mass Do you want consulting provider notified?: Already Contacted Primary care physician: [facility] Course: Final Diagnoses: -Scrotal mass: Possible epididymitis secondary to Klebsiella UTI -Acute renal failure: Secondary to prerenal azotemia improved with IV fluid hydration -Chronic kidney disease stage III: Secondary to diabetic nephropathy -Type 2 diabetes mellitus -Hypertension continue atenolol hold off lisinopril because of acute renal dysfunction and hyperkalemia -Hyperlipidemia continue with atorvastatin Hospital course: This is a 82-year-old gentleman was admitted for scrotal mass, urology evaluated the patient and they believe patient has epididymitis and patient is on IV antibiotics. Received gentle IV fluid hydration, patient's renal function improved. Significant clinical improvement. Patient has been cleared for discharge by urology. Patient is being discharged home in a stable condition with guarded prognosis. Physical exam:VSS,GENERAL: The patient is alert and oriented x3, not in any acute distress. CARDIOVASCULAR: S1 and S2 present. No murmurs, rubs, or gallops. PULMONARY: Chest is clear to auscultation, no wheezing or crackles. ABDOMEN: Soft, nontender, nondistended, normoactive bowel sounds. No palpable organomegaly. NEUROLOGICAL: Gross neurological examination did not reveal any focal deficits. Genitourinary: Patient has a right-sided small scrotal mass Microbiology 01/11/18 13:18 Blood Blood Culture - Preliminary No Growth after 72 hours 01/11/18 14:25 Urine,Catheterized Urine Culture - Final Klebsiella pneumoniae The impression and plan of care has been dictated as directed. : I performed a history and examination of this patient, discussed the same with the dictator. I agree with the dictator's note ,documented as a scribe. Any additional findings or plans will be noted. Time taken: 35 minutes Patient Condition at Discharge: Stable Plan - Discharge Summary Discharge Rx Participant: Yes New Discharge Prescriptions: New Ciprofloxacin HCl [Cipro] 500 mg PO BID 3 Days #20 tab Continue Aspirin EC [Ecotrin Low Dose] 81 mg PO DAILY clonazePAM [KlonoPIN] 0.5 mg PO BID Atenolol [Tenormin] 50 mg PO DAILY Cholecalciferol [Vitamin D3] 1,000 unit PO DAILY Cyanocobalamin [Vitamin B-12] 500 mcg PO DAILY Vitamin C Chewable 250 mg PO DAILY glipiZIDE [Glucotrol] 5 mg PO AC-BID Simvastatin [Zocor] 80 mg PO DAILY Multivitamins, Thera [Multivitamin (formulary)] 1 tab PO DAILY Discontinued Amoxicillin 500 mg PO Q12HR Discharge Medication List Aspirin EC [Ecotrin Low Dose] 81 mg PO DAILY 11/02/15 [History] Atenolol [Tenormin] 50 mg PO DAILY 11/02/15 [History] Cholecalciferol [Vitamin D3] 1,000 unit PO DAILY 11/02/15 [History] clonazePAM [KlonoPIN] 0.5 mg PO BID 11/02/15 [History] Cyanocobalamin [Vitamin B-12] 500 mcg PO DAILY 11/03/15 [History] Simvastatin [Zocor] 80 mg PO DAILY 11/03/15 [History] Vitamin C Chewable 250 mg PO DAILY 11/03/15 [History] glipiZIDE [Glucotrol] 5 mg PO AC-BID 11/03/15 [History] Multivitamins, Thera [Multivitamin (formulary)] 1 tab PO DAILY 01/11/18 [History ] Ciprofloxacin HCl [Cipro] 500 mg PO BID 3 Days #20 tab 01/14/18 [Rx] Follow up Appointment(s)/Referral(s): Jey Mondragon MD [STAFF PHYSICIAN] - 01/21/18 9:10 am (office will be mailing information regarding appointment) [facility] [Primary Care Provider] - 01/19/18 (office will call later in the day with time for FridayJanuary 19) Ambulatory/Diagnostic Orders: Complete Blood Count w/diff [LAB.AMB] Time Frame: 3 Days, Location: Determined By Patient Activity/Diet/Wound Care/Special Instructions: MIL inhibitor on hold related to renal function Diet: Consistent carb Accu-Cheks before meals and at bedtime Discharge Disposition: HOME SELF-CARE
== END 2018-01-14 15:00 | disposition home or self-care (01) | DRG 728 ==
LOC: EC 11:32 → 3SUR 15:34
PROVIDERS: ADMIT Internal Medicine; ATTEND Internal Medicine
DX: N45.1 Epididymitis (principal); N17.9 Acute kidney failure, unspecified; E11.21 Type 2 diabetes mellitus with diabetic nephropathy; E87.5 Hyperkalemia; N39.0 Urinary tract infection, site not specified; B96.1 Klebsiella pneumoniae [K. pneumoniae] as the cause of diseases classified elsewhere; E11.22 Type 2 diabetes mellitus with diabetic chronic kidney disease; E78.5 Hyperlipidemia, unspecified; F32.9 Major depressive disorder, single episode, unspecified; F41.9 Anxiety disorder, unspecified; I12.9 Hypertensive chronic kidney disease with stage 1 through stage 4 chronic kidney disease, or unspecified chronic kidney disease; N18.3 Chronic kidney disease, stage 3 (moderate); N31.9 Neuromuscular dysfunction of bladder, unspecified; Z96.1 Presence of intraocular lens; Z98.42 Cataract extraction status, left eye; Z98.41 Cataract extraction status, right eye; Z79.899 Other long term (current) drug therapy; Z79.84 Long term (current) use of oral hypoglycemic drugs; Z79.82 Long term (current) use of aspirin; T46.4X5A Adverse effect of angiotensin-converting-enzyme inhibitors, initial encounter
CPT/HCPCS: 36415; 51798; 76870; 80048; 80053; 81001; 83605; 83735; 84484; 85025; 85027; 85610; 85730; 87040; 87077; 87086; 87186; 93005; 93975; 96361; 96374; 99285

== ENCOUNTER → 2018-01-16 | Outpatient (CLI) | payer MEDICARE ==
[2018-01-16 11:42] LABS: Basophils % (A) 0 %; Eosinophils # (A) 0.1 k/uL (0-0.7); Eosinophils % (A) 1 %; HCT 39.1 % (39.0-53.0); HGB 12.9 gm/dL (13.0-17.5); Lymphocytes # (A) 1.4 k/uL (1.0-4.8); Lymphocytes % (A) 21 %; MCH 32.2 pg (25.0-35.0); MCHC 33.1 g/dL (31.0-37.0); MCV 97.2 fL (80.0-100.0); Mean Platelet Volume 7.1; Monocytes # (A) 0.3 k/uL (0-1.0); Monocytes % (A) 5 %; Neutrophils # (A) 4.7 k/uL (1.3-7.7); Neutrophils % (A) 72 %; Platelet Count 297 k/uL (150-450); RBC 4.03 m/uL (4.30-5.90); RDW 13.2 % (11.5-15.5); WBC 6.5 k/uL (3.8-10.6)
[2018-01-16 12:00] LABS: Calcium 9.4 mg/dL (8.4-10.2); Potassium 5.3 mmol/L (3.5-5.1)
== END | disposition home or self-care (01) ==
LOC: LABWHC1 10:38
PROVIDERS: ATTEND Nurse Practitioner
DX: N39.0 Urinary tract infection, site not specified (principal); N19 Unspecified kidney failure
CPT/HCPCS: 36415; 80048; 85025

== ENCOUNTER → 2019-03-10 | Outpatient (CLI) | payer OTHER ==
--- NOTE | 2019-03-10 11:37 | US ---
EXAMINATION TYPE: US kidneys/renal and bladder DATE OF EXAM: 03/10/2019 COMPARISON: US 11/04/2015 CLINICAL HISTORY: R10.13 Dyspepsia. Patient self catheterizes EXAM MEASUREMENTS: Right Kidney: 9.1 x 5.3 x 4.9 cm Left Kidney: 9.9 x 4.5 x 4.9 cm Right Kidney: No hydronephrosis, cystic area visualized 5.1 x 5.3 x 5.1 cm, the focus is anechoic wit h increased through transmission and imperceptible wall Left Kidney: No hydronephrosis. Cystic area visualized 2.1 x 2.1 x 1.8 cm, increased through transmis tony, anechoic, imperceptible wall Bladder: Bladder wall appears thickened Bilateral Jets seen: Yes No ascites evident. Kidneys show normal cortical medullary differentiation. IMPRESSION: Simple cyst within the kidneys. Correlate to exclude cystitis.
== END | disposition home or self-care (01) ==
LOC: RADUSWWP 09:52
DX: N28.1 Cyst of kidney, acquired (principal)
CPT/HCPCS: 76770

== ENCOUNTER → 2022-10-30 | Outpatient (CLI) | payer OTHER ==
[2022-10-30 14:59] LABS: HGB 12.4 g/dL (13.0-17.0); MCH 30.8 pg (27.0-32.0); MCHC 32.6 g/dL (32.0-37.0); MCV 94.5 fL (80.0-97.0); Mean Platelet Volume 10.5 fL (9.5-12.2); NRBC Per 100 WBC 0 /100 WBCS (0.0-0.0); Platelet Count 158 X 10*3/uL (140-440); RBC 4.02 X 10*6/uL (4.40-5.60); RDW 11.9 % (11.5-14.5)
[2022-10-30 16:25] LABS: African American GFR (CKD) 27.6 (60.0-200.0); Anion Gap 10.8 mmol/L (10.00-18.00); Blood Urea Nitrogen 42.8 mg/dL (9.0-27.0); Carbon Dioxide 26.8 mmol/L (20.0-27.5); Non-African American GFR(CKD) 23.8 (60.0-200.0); Potassium 5.4 mmol/L (3.5-5.5)
== END | disposition home or self-care (01) ==
LOC: LABWHC1 08:54
PROVIDERS: ATTEND Internal Medicine Interventional Cardiology
DX: Z01.812 Encounter for preprocedural laboratory examination (principal); I25.10 Atherosclerotic heart disease of native coronary artery without angina pectoris
CPT/HCPCS: 36415; 80051; 82565; 84520; 85027

== ENCOUNTER 2022-11-07 07:38 | Day surgery (SDC) | payer MEDICARE, OTHER ==
[~2022-11-07 07:38] MED LIST: ALPRAZolam 0.25 MG TAB PO PRN; ALPRAZolam 0.5 MG TAB PO PRN; ASPIRIN 325 MG TAB PO ONE; ATORVASTATIN 80 MG TAB PO ONE; HEPARIN SODIUM,PORCINE 10,000 UNIT in SODIUM CHLORIDE 0.9% 1,000 ML IRRIGATION PRN; HEPARIN SODIUM,PORCINE 2,500 UNIT in SODIUM CHLORIDE 0.9% 250 ML IRRIGATION PRN; NITROGLYCERIN SL TABS 0.4 MG TAB SUBLINGUAL PRN
[2022-11-07] MEDS: SODIUM CHLORIDE 0.9% 1,000 ML in EMPTY BAG 1 BAG IV SCH ×2 (08:09→21:56)
[2022-11-07 08:12] LABS: Glucose,Whole Blood 98 mg/dL (70-110)
[2022-11-07] MEDS ORDERED: MIDAZOLAM 2 MG/2 ML VIAL IV ONE (11:22)
[2022-11-07] MEDS ORDERED: LIDOCAINE 1% INJ 10MG/ML (5 ML VIAL-PF) SQ ONE (11:26)
[2022-11-07] MEDS ORDERED: HEPARIN SODIUM 1,000 UN/ML (10ML VL) IV ONE (11:40)
[2022-11-07] MEDS ORDERED: fentaNYL (PF) 50 MCG/ML 2 ML AMP ONE (11:45)
[2022-11-07] MEDS ORDERED: fentaNYL (PF) 50 MCG/ML 2 ML AMP IV ONE (11:46)
[2022-11-07] MEDS ORDERED: NITROGLYCERIN 1000MCG/10ML SYRINGE INTRACORON ONE (11:55)
[2022-11-07] MEDS ORDERED: IOPAMIDOL-370 125ML BTL INJ ONE (12:02)
[2022-11-07] MEDS ORDERED: CLOPIDOGREL 75 MG TAB ONE (12:06)
[2022-11-07] MEDS ORDERED: NITROGLYCERIN SL TABS 0.4 MG TAB SUBLINGUAL PRN (12:09)
[2022-11-07] MEDS ORDERED: ZOLPIDEM 5 MG TAB PO PRN (12:09)
[2022-11-07] MEDS ORDERED: MAG HYDROX/AL HYDROX/SIMETH 30 ML CUP PO PRN (12:09)
[2022-11-07] MEDS ORDERED: ATROPINE SULFATE 0.1 MG/ML 10ML SYRINGE IV PRN (12:09)
[2022-11-07] MEDS ORDERED: RX INFO: IV CONTRAST WAS GIVEN 1 EACH MISC MISCELLANE PRN (12:09)
[2022-11-07] MEDS ORDERED: CLOPIDOGREL 75 MG TAB PO ONE (12:10)
[2022-11-07] MEDS ORDERED: SODIUM CHLORIDE 0.9% 1,000 ML in EMPTY BAG 1 BAG IV SCH (12:15)
--- NOTE | 2022-11-07 12:18 | P.PCN ---
Date of Procedure: 11/07/22 Operative Findings: CARDIAC CATHETERIZATION AND PERCUTANEOUS CORONARY INTERVENTION PERFORMING PHYSICIAN: Rg Martinez MD, RPVI PROCEDURE PERFORMED: 1. Selective right and left coronary angiogram 2. Left heart catheterization 3. Successful stenting of proximal LCx using 2.75 x 15 mm Xience MABEL which with an excellent angiographic results 4. Selective right common femoral artery angiogram INDICATION: This is an 87-year-old gentleman who was diagnosed recently with cardiomyopathy. He underwent myocardial perfusion imaging stress test and that showed at least moderate area of ischemia involving the lateral wall of the LV. In the light of that a heart catheterization was advised. COMPLICATION: None APPROACH: Right common femoral artery. The patient has no right radial pulse LEVEL OF SEDATION: Moderate with the sedation time off 43 minutes PROCEDURE DESCRIPTION: After obtaining an informed consent the patient was brought to the cardiac laborer steel handling. The right common femoral artery was cannulated using micropuncture technique, the micropuncture wire passed easily then I placed a 6-Malay sheath at the right common femoral artery. After that I did selective right and left coronary angiogram. Selective right coronary angiogram was performed using JR4 catheter and selective left coronary angiogram was performed using JL4 catheters. Left heart catheterization was performed using the JL4 catheter which cross the aortic valve then I did pulled back across the valve. The procedure was completed with no complication. SELECTIVE CORONARY ANGIOGRAM: The right coronary artery: Large-caliber vessel and a dominant vessel. The ostial RCA has a lesion appeared to be extremely calcified and eccentric in the range of 99.9%. As a matter of fact the RCA has collateral from the left coronary system. The mid and distal RCA appears to have mild to moderate diffuse disease only. The RCA distally bifurcates into PDA and PLV branches both appeared to be angiographically normal Left main: Large-caliber vessel. Its angiographically normal. Bifurcates into an LCx and LAD The left circumflex: Large caliber vessel and nondominant vessel. The proximal LCx just before the bifurcation of OM1 has a critical lesion appeared to be in the range of 80% appeared to be very focal and calcified. The circumflex after that gives rises into an OM1 and OM to both appeared to have mild disease only. Distally the circumflex gives rises into an appointment 3 which appeared to be a large caliber vessel was mild disease only. The left anterior descending artery: Large caliber vessel. The proximal LAD has mild disease only. The mid LAD has a tubular lesion appeared to be in the range of 60-70%. The LAD distally has mild disease only. The LAD proximally gives rises into a large diagonal branch which has mild disease only. HEMODYNAMICS: The LVEDP was 2 mmHg was no significant gradient across the aortic valve PCI OF THE LCx: Anticoagulation was initiated using heparin with continuous ACT monitoring. Subsequently I engaged the left main using a CLS guiding catheter. I did to wire the left circumflex using 2 wires giving the tortuosity and calcifications of the lesion. I did wired using a run-through wire and whisper wire. After that balloon angioplasty was performed using 2.5 x 12 mm balloon before I deployed 2.75 x 15 mm stent where the stent was positioned under fluoroscopy guidance and deployed under its nominal pressure. The following angiogram showed an excellent angiographic results was ISMAEL-3 flow on the procedure was completed with no complication CONCLUSION: 1. Recent diagnosis of cardiomyopathy in this 87-year-old gentleman who underwent myocardial perfusion imaging stress test revealed moderate area of reversibility laterally. 2. critical disease involving the ostial RCA. Critical disease involving the proximal LCx. Intermediate disease involving the LAD. 3. successful stenting of the LCx as described above with an excellent angiographic results. I did not perform stenting of the RCA in the light of complexity of the lesion and limits amount of contrast we have. The patient GFR is 25 POSTPROCEDURE MANAGEMENT: #1 dual antiplatelet therapy using aspirin and Plavix for at least 6 months #2 aggressive cholesterol control #3 follow-up with the patient
[2022-11-07 14:08] LABS: Glucose,Whole Blood 99 mg/dL (70-110)
[2022-11-07 14:49] VITALS: BMI 21.4
[2022-11-07 16:45] LABS: Glucose,Whole Blood 96 mg/dL (70-110)
[2022-11-07] MEDS: glipiZIDE 10 MG TAB PO SCH (16:59)
[2022-11-07] MEDS: buPROPion SR 100 MG TABLET.ER PO SCH ×2 (16:59→22:01)
[2022-11-07 19:46] LABS: Glucose,Whole Blood 205 mg/dL (70-110)
[2022-11-07] MEDS: clonazePAM 0.5 MG TAB PO SCH (20:13)
[2022-11-07] MEDS: hydrALAZINE HCL 25 MG TAB PO SCH (20:14)
[2022-11-08 06:08] LABS: Glucose,Whole Blood 73 mg/dL (70-110)
[2022-11-08 06:29] LABS: Glucose,Whole Blood 89 mg/dL (70-110)
[2022-11-08 07:42] LABS: Calcium 8.7 mg/dL (8.4-10.2); Potassium 4.5 mmol/L (3.5-5.1)
--- NOTE | 2022-11-08 08:34 | P.DS ---
Providers Attending physician: Rg Martinez Consults: 11/07/22 12:09 Consult Physician Routine Consulting Provider: [facility] Consult Reason/Comments: Post Interventional Patient Do you want consulting provider notified?: Already Contacted Primary care physician: [facility] Course: The patient is a pleasant 87-year-old gentleman who was seen in the office recently and was diagnosed with severe cardiomyopathy. He underwent yesterday heart catheterization and was found to have critical disease involving the RCA and severe disease involving the LCx an intermediate disease involving the LAD. He underwent successful stenting of the LCx. He underwent myocardial perfusion imaging stress test before and that showed lateral ischemia. He was seen this morning. He is asymptomatic. His hemogram is a stable. He is going to be discharged on dual antiplatelet therapy and statin and will follow- up with the patient next week in the office Plan - Discharge Summary Discharge Rx Participant: Yes New Discharge Prescriptions: New Clopidogrel [Plavix] 75 mg PO DAILY #90 tab Continue Aspirin EC [Ecotrin Low Dose] 81 mg PO DAILY clonazePAM [KlonoPIN] 1.5 tab PO BID Cholecalciferol [Vitamin D3 (25 Mcg = 1000 Iu)] 1,000 unit PO DAILY Cyanocobalamin [Vitamin B-12] 500 mcg PO DAILY Vitamin C Chewable 250 mg PO DAILY glipiZIDE [Glucotrol] 10 mg PO AC-BID Simvastatin [Zocor] 80 mg PO DAILY Multivitamins, Thera [Multivitamin (formulary)] 1 tab PO DAILY Metoprolol Succinate (ER) [Toprol XL] 25 mg PO DAILY hydrALAZINE HCL [Apresoline] 25 mg PO BID lisinopriL 2.5 mg PO DAILY buPROPion HCL [buPROPion HCL SR] 100 mg PO TID Furosemide [Lasix] 40 mg PO DAILY amLODIPine [Norvasc] 10 mg PO DAILY Discharge Medication List Aspirin EC [Ecotrin Low Dose] 81 mg PO DAILY 11/02/15 [History] Cholecalciferol [Vitamin D3 (25 Mcg = 1000 Iu)] 1,000 unit PO DAILY 11/02/15 [History] clonazePAM [KlonoPIN] 1.5 tab PO BID 11/02/15 [History] Cyanocobalamin [Vitamin B-12] 500 mcg PO DAILY 11/03/15 [History] Simvastatin [Zocor] 80 mg PO DAILY 11/03/15 [History] Vitamin C Chewable 250 mg PO DAILY 11/03/15 [History] glipiZIDE [Glucotrol] 10 mg PO AC-BID 11/03/15 [History] Multivitamins, Thera [Multivitamin (formulary)] 1 tab PO DAILY 01/11/18 [History] Furosemide [Lasix] 40 mg PO DAILY 11/06/22 [History] Metoprolol Succinate (ER) [Toprol XL] 25 mg PO DAILY 11/06/22 [History] amLODIPine [Norvasc] 10 mg PO DAILY 11/06/22 [History] buPROPion HCL [buPROPion HCL SR] 100 mg PO TID 11/06/22 [History] hydrALAZINE HCL [Apresoline] 25 mg PO BID 11/06/22 [History] lisinopriL 2.5 mg PO DAILY 11/06/22 [History] Clopidogrel [Plavix] 75 mg PO DAILY #90 tab 11/08/22 [Rx] Follow up Appointment(s)/Referral(s): Rg Martinez MD [STAFF PHYSICIAN] - 1 Week (APPOINTMENT MADE ON October @ 4:45PM ) Patient Instructions/Handouts: *[facility] - After Heart Catheterization - Exploration Geologist Instructions, Moderate Sedation (DC), After Radial Heart Catheterization (GEN) Activity/Diet/Wound Care/Special Instructions: *NO LIFTING, PUSHING, OR PULLING ANYTHING OVER 5 POUNDS FOR 5 DAYS *NO DRIVING FOR 3 DAYS *YOU CAN SHOWER TOMORROW BUT DO NOT SUBMERSE YOUR PUNCTURE SITE IN WATER FOR A FEW DAYS TO PREVENT INFECTION - SO NO TUB BATHS, POOLS HOT TUBS, DISHES...ETC *ANY SIGNS OF BLEEDING (HARDNESS, SWELLING, OR EXCESSIVE BRUISING) HOLD DIRECT PRESSURE ON YOUR PUNCTURE SITE AND COME TO THE NEAREST EMERGENCY ROOM TO GET YOUR PUNCTURE SITE LOOKED AT - DO NOT DRIVE YOURSELF! EITHER CALL EMS OR HAVE SOMEONE DRIVE YOU!
[2022-11-08] MEDS ORDERED: ASCORBIC ACID 500 MG TAB PO SCH (09:00)
[2022-11-08] MEDS ORDERED: MULTIVITAMINS, THERA 1 EACH TAB PO SCH (09:00)
[2022-11-08] MEDS ORDERED: ASPIRIN 81 MG PO SCH (09:00)
[2022-11-08] MEDS ORDERED: METOPROLOL SUCCINATE (ER) 25 MG TAB.ER.24H PO SCH (09:00)
[2022-11-08] MEDS ORDERED: ATORVASTATIN 40 MG TAB PO SCH (09:00)
[2022-11-08] MEDS ORDERED: CLOPIDOGREL 75 MG TAB PO SCH (09:00)
[2022-11-08] MEDS ORDERED: amLODIPine 10 MG TAB PO SCH (09:00)
[2022-11-08] MEDS ORDERED: FUROSEMIDE 40 MG TAB PO SCH (09:00)
[2022-11-08] MEDS ORDERED: CYANOCOBALAMIN 500 MCG TAB PO SCH (09:00)
[2022-11-08] MEDS ORDERED: CHOLECALCIFEROL 25 MCG (1000 IU) TABLET PO SCH (09:00)
[2022-11-08] MEDS: clonazePAM 0.5 MG TAB PO SCH (09:19)
[2022-11-08] MEDS: hydrALAZINE HCL 25 MG TAB PO SCH (09:19)
[2022-11-08] MEDS: buPROPion SR 100 MG TABLET.ER PO SCH (09:19)
[2022-11-08] MEDS: glipiZIDE 10 MG TAB PO SCH (09:19)
[2022-11-08 10:21] VITALS: BP 123/67; PULSE 98; RESP 19; TEMP 97.6
== END 2022-11-08 10:19 | disposition home health service (06) ==
LOC: CATHCVL 07:38 → 3SCARD 12:00 → CATHCVL 11-08 10:19
PROVIDERS: ATTEND Internal Medicine Interventional Cardiology
DX: I42.9 Cardiomyopathy, unspecified (principal); I11.0 Hypertensive heart disease with heart failure; E78.5 Hyperlipidemia, unspecified; E11.9 Type 2 diabetes mellitus without complications; I34.0 Nonrheumatic mitral (valve) insufficiency; Z79.01 Long term (current) use of anticoagulants; Z79.899 Other long term (current) drug therapy
CPT/HCPCS: 94760; 93458; 80048; C9600; C1769 ×3; C1887; C1894; C1725; C1874; J2250; S0106 ×2; J2001; J3010; J1644; Q9967

== ENCOUNTER 2023-01-01 10:35 | Day surgery (SDC) | payer MEDICARE ==
[~2023-01-01 10:35] MED LIST changes: -ASPIRIN 325 MG TAB PO ONE; +ASPIRIN 325 MG TAB PO STA; -ATORVASTATIN 80 MG TAB PO ONE; +ATORVASTATIN 80 MG TAB PO STA
[2023-01-01] MEDS ORDERED: SODIUM CHLORIDE 0.9% 1,000 ML IV ONE (10:50)
[2023-01-01 11:03] LABS: Glucose,Whole Blood 170 mg/dL (70-110)
[2023-01-01 11:37] LABS: Calcium 9.1 mg/dL (8.4-10.2); HCT 33.4 % (39.0-53.0); HGB 11.6 gm/dL (13.0-17.5); MCH 33.9 pg (25.0-35.0); MCHC 34.8 g/dL (31.0-37.0); MCV 97.2 fL (80.0-100.0); Mean Platelet Volume 7.7; Platelet Count 173 k/uL (150-450); RBC 3.44 m/uL (4.30-5.90); RDW 13.1 % (11.5-15.5); WBC 6.1 k/uL (3.8-10.6)
[2023-01-01 11:57] LABS: Eosinophils # (M) 0.31 k/uL (0-0.7); Lymphocytes # (M) 2.81 k/uL (1.0-4.8); Monocytes # (M) 0.61 k/uL (0-1.0); Neutrophils # (M) 2.38 k/uL (1.3-7.7); Neutrophils % (M) 39 %; Nucleated Red Blood Cells 0 /100 WBC (0-0); Total Cells Counted 100
[2023-01-01] MEDS ORDERED: LIDOCAINE 1% INJ 10MG/ML (20 ML MDV) ONE (13:44)
[2023-01-01] MEDS ORDERED: HEPARIN SODIUM 1,000 UN/ML (10ML VL) ONE (13:46)
[2023-01-01] MEDS ORDERED: MIDAZOLAM 2 MG/2 ML VIAL IVP ONE (14:01)
[2023-01-01] MEDS ORDERED: LIDOCAINE 1% INJ 10MG/ML (20 ML MDV) SQ ONE (14:01)
[2023-01-01] MEDS: HEPARIN SODIUM 1,000 UN/ML (10ML VL) IVP ONE ×2 (14:10→14:46)
[2023-01-01] MEDS ORDERED: NITROGLYCERIN 1000MCG/10ML SYRINGE INTRACORON ONE (15:15)
[2023-01-01] MEDS ORDERED: IOPAMIDOL-370 100ML BTL INJ ONE (15:27)
[2023-01-01] MEDS ORDERED: CLOPIDOGREL 75 MG TAB ONE (15:36)
[2023-01-01] MEDS ORDERED: VITAMIN B COMPLEX PO PRN (16:09)
[2023-01-01] MEDS ORDERED: VIT C PO PRN (16:09)
[2023-01-01] MEDS ORDERED: ATROPINE SULFATE 0.1 MG/ML 10ML SYRINGE IV PRN (16:10)
[2023-01-01] MEDS ORDERED: RX INFO: IV CONTRAST WAS GIVEN 1 EACH MISC MISCELLANE PRN (16:10)
[2023-01-01] MEDS ORDERED: NITROGLYCERIN SL TABS 0.4 MG TAB SUBLINGUAL PRN (16:10)
[2023-01-01] MEDS ORDERED: MAG HYDROX/AL HYDROX/SIMETH 30 ML CUP PO PRN (16:10)
[2023-01-01] MEDS ORDERED: ZOLPIDEM 5 MG TAB PO PRN (16:10)
[2023-01-01] MEDS ORDERED: SODIUM CHLORIDE 0.9% 1,000 ML in EMPTY BAG 1 BAG IV SCH (16:15)
--- NOTE | 2023-01-01 16:25 | P.PCN ---
Date of Procedure: 01/01/23 Operative Findings: PERCUTANEOUS CORONARY INTERVENTION Performing physician Rg Martinez M.D. Procedure Performed: 1. Successful stenting of the mid LAD using 3.0 x 28 mm Xience drug-eluting stent with an excellent angiographic results with adjunctive use of atherectomy 2. Intravascular ultrasound of the left anterior descending artery 3. Placement of Impella CP in the left ventricle 4. Right common femoral artery angiogram and ultrasound guided access of the right common femoral artery Indication: This is a pleasant 87-year-old gentleman who continues to be functional and in good physical and mental shape with history of CAD and severe ischemic cardiomyopathy who underwent a workup recently and that showed severe triple- vessel coronary artery disease. The patient underwent PCI of the left circumflex coronary artery. He was treated medically for the disease in the LAD and right coronary artery because he remains symptomatic despite of maximize medical treatment including anti-ischemic medications and cardiomyopathy medications he was brought today to undergo PCI of the LAD and right coronary artery. Approach: Right common femoral artery Complications: None Level of Sedation: Moderate with a sedation length of [] minutes Procedure Discussion: After obtaining an informed consent the patient was brought to the cardiac labor operator. The right groin was prepped and lab in the usual sterile fashion. Subse quently local anesthesia was achieved by injecting 2% lidocaine subcutaneously. The right common femoral artery was cannulated using micropuncture technique under ultrasound guidance, the micropuncture wire passed easily then I placed initially the micropuncture sheath over the wire. I did selective right common femoral artery angiogram with injection through the micropuncture sheath and that initially showed that the puncture site appeared to be on the low side. The sheath was pulled out and manual pressure was held for about 5 minutes. Subsequently I accessed the right common femoral artery again with the same technique and selective right common femoral artery angiogram showed better position and entry of the sheath. At that point I did place a 6-Martiniquais sheath at the right common femoral artery. Anticoagulation was initiated using heparin with continuous ACT monitoring. Subsequently I did decided to perform initially an FFR of the left anterior descending artery because angiographically the lesion appears to be in the anteromedial to severe range. After zeroing the Doppler wire and equalizing between the Doppler wire and the guiding catheter we did an iFR and that came in to be ischemic at 0.63. At that point I decided to intervene on the left anterior descending artery. The lesion in the right coronary artery by its ostium is a critical. Subsequently and because the ejection fraction was extremely low I decided to place hemodynamic support. At that point the Doppler wire and the guiding catheter were withdrawn out. I did upgrade my 6-Martiniquais sheath into a 14-Martiniquais sheath using stiff all 35 wire after I placed two Perclose devices. After that I did across the aortic valve using a pigtail catheter over 035 wire then I did exchange my 035 wire into 018 wire using the pigtail catheter. Then after that I did advance the Impella to the left ventricle over the 018 wire under fluoroscopy guidance. After that I did puncture the 14-Martiniquais sheath using micropuncture at 10:00. The micro- puncture wire passed easily then after that I place the micropuncture sheath over the micropuncture wire then I place an 035 wire through the micropuncture sheath and then I placed a 7-Martiniquais sheath. Then I did engage the left main using JL4 guiding catheter. I did wire the LAD using initially a run-through wire. Intravascular ultrasound was performed and showed that the LAD was extremely calcified. It was calcified by fluoroscopy as well. I decided to modify the vessel using atherectomy. I did wire the LAD using the atherectomy wire and the wire was advanced all the way to the distal portion. I did after that atherectomy of the LAD using low-speed 3 times. After that I did decided to do lithotripsy balloon. I did inflated to 3.0 mm balloon after the balloon was advanced over the run-through wire. The balloon inflated under 4 paul. The lesion was extremely tight and finally open up under 6 paul. After that I decided to stent the lesion using 3.0 x 28 mm stent where the stent was positioned under fluoroscopy guidance and deployed under fluoroscopy guidance. The following angiogram showed excellent angiographic results. By the end of the procedure we reached about 60 mL of contrast and the patient's maximum use of contrast was a 70 mL. At that point the intervention on the right coronary artery was aborted. Subsequently I did pull the Impella from the LV and then from the 14-Martiniquais sheath. Then I did pull the 14-Martiniquais sheath over 035 wire and I did deploy one Perclose and one Angio-Seal by the end we achieved a great hemostasis. The procedure was completed was no complication Postprocedure Management: 1. Dual antiplatelet therapy for at least 6 month using aspirin and Plavix 2. Aggressive cholesterol control 3. Risk factors modification
[2023-01-01] MEDS: SODIUM CHLORIDE 0.9% 1,000 ML in EMPTY BAG 1 BAG IV SCH (17:13)
[2023-01-01 17:34] LABS: Glucose,Whole Blood 230 mg/dL (70-110)
[2023-01-01] MEDS: glipiZIDE 10 MG TAB PO SCH (18:39)
[2023-01-01 20:25] LABS: Glucose,Whole Blood 183 mg/dL (70-110)
[2023-01-01] MEDS: clonazePAM 0.5 MG TAB PO SCH (20:32)
[2023-01-01] MEDS: hydrALAZINE HCL 25 MG TAB PO SCH (20:32)
[2023-01-01] MEDS: buPROPion SR 100 MG TABLET.ER PO SCH (21:37)
[2023-01-02] MEDS: SODIUM CHLORIDE 0.9% 1,000 ML in EMPTY BAG 1 BAG IV SCH (04:32)
[2023-01-02 06:16] LABS: Glucose,Whole Blood 70 mg/dL (70-110)
[2023-01-02] MEDS: glipiZIDE 10 MG TAB PO SCH (06:20)
[2023-01-02 06:27] LABS: Glucose,Whole Blood 91 mg/dL (70-110)
[2023-01-02] MEDS ORDERED: FUROSEMIDE 20 MG TAB PO SCH (09:00)
[2023-01-02] MEDS ORDERED: METOPROLOL SUCCINATE (ER) 25 MG TAB.ER.24H PO SCH (09:00)
[2023-01-02] MEDS ORDERED: ATORVASTATIN 20 MG TAB PO SCH (09:00)
[2023-01-02] MEDS ORDERED: CLOPIDOGREL 75 MG TAB PO SCH (09:00)
[2023-01-02] MEDS: hydrALAZINE HCL 25 MG TAB PO SCH (09:09)
[2023-01-02] MEDS: clonazePAM 0.5 MG TAB PO SCH (09:09)
[2023-01-02] MEDS: buPROPion SR 100 MG TABLET.ER PO SCH (09:10)
--- NOTE | 2023-01-02 09:21 | P.DS ---
Providers Attending physician: Rg Martinez Consults: 01/01/23 16:11 Consult Physician Routine Consulting Provider: [facility] Consult Reason/Comments: Post Interventional Patient Do you want consulting provider notified?: Already Contacted Primary care physician: Stated None Hospital Course: The patient is a pleasant 87-year-old gentleman who underwent yesterday successful stenting of the mid left anterior descending artery with a good angiographic results and with no complication. He was seen this morning. He is asymptomatic and he stated that the shortness of breath has improved. He reports no pain in the chest. The right groin is soft and nontender with no bruises. From the cardiovascular standpoint of view, the patient is going to be discharged home on dual antiplatelet therapy and statin. I will follow-up with the patient next week in the office. Plan - Discharge Summary Discharge Rx Participant: No New Discharge Prescriptions: Continue Aspirin EC [Ecotrin Low Dose] 81 mg PO 1400 clonazePAM [KlonoPIN] 0.25 tab PO BID glipiZIDE [Glucotrol] 10 mg PO AC-BID Simvastatin [Zocor] 40 mg PO DAILY Metoprolol Succinate (ER) [Toprol XL] 25 mg PO DAILY hydrALAZINE HCL [Apresoline] 25 mg PO TID lisinopriL 2.5 mg PO QAM buPROPion HCL [buPROPion HCL SR] 100 mg PO TID Furosemide [Lasix] 20 mg PO QAM amLODIPine [Norvasc] 10 mg PO 1400 Clopidogrel [Plavix] 75 mg PO DAILY #90 tab Vitamin B Complex W/ Vit C 1 tab PO DAILY PRN PRN Reason: supplements Discharge Medication List Aspirin EC [Ecotrin Low Dose] 81 mg PO 1400 11/02/15 [History] clonazePAM [KlonoPIN] 0.25 tab PO BID 11/02/15 [History] Simvastatin [Zocor] 40 mg PO DAILY 11/03/15 [History] glipiZIDE [Glucotrol] 10 mg PO AC-BID 11/03/15 [History] Furosemide [Lasix] 20 mg PO QAM 11/06/22 [History] Metoprolol Succinate (ER) [Toprol XL] 25 mg PO DAILY 11/06/22 [History] amLODIPine [Norvasc] 10 mg PO 1400 11/06/22 [History] hydrALAZINE HCL [Apresoline] 25 mg PO TID 11/06/22 [History] lisinopriL 2.5 mg PO QAM 11/06/22 [History] Clopidogrel [Plavix] 75 mg PO DAILY #90 tab 11/08/22 [Rx] Vitamin B Complex W/ Vit C 1 tab PO DAILY PRN 12/31/22 [History] buPROPion HCL [buPROPion HCL SR] 100 mg PO TID 12/31/22 [History] Follow up Appointment(s)/Referral(s): Rg Martinez MD [STAFF PHYSICIAN] - 1 Week
[2023-01-02 09:28] VITALS: BP 104/43; PULSE 77; RESP 20; TEMP 97.8
[2023-01-02 10:25] VITALS: BMI 21.1
[2023-01-02 11:34] LABS: Glucose,Whole Blood 141 mg/dL (70-110)
[2023-01-02] MEDS ORDERED: ASPIRIN 81 MG PO SCH (14:00)
[2023-01-02] MEDS ORDERED: amLODIPine 10 MG TAB PO SCH (14:00)
== END 2023-01-02 11:45 | disposition home health service (06) ==
LOC: CATHCVL 10:35 → 3SCARD 16:52 → CATHCVL 01-02 11:45
PROVIDERS: ATTEND Internal Medicine Interventional Cardiology
DX: I25.10 Atherosclerotic heart disease of native coronary artery without angina pectoris (principal); I25.5 Ischemic cardiomyopathy; Z79.82 Long term (current) use of aspirin; Z79.84 Long term (current) use of oral hypoglycemic drugs; Z79.899 Other long term (current) drug therapy; Z95.5 Presence of coronary angioplasty implant and graft
CPT/HCPCS: 94760; 92978; 33990; 80048; 82565; 85025; C1769 ×6; C9602; C1760 ×2; C1887; C1894 ×2; C1753; C1724; C1874; C1761; J2250; S0106 ×2; J2001; J1644; Q9967

== ENCOUNTER 2023-01-15 06:40 | Emergency (ER) | payer MEDICARE ==
[2023-01-15 06:43] LABS: Glucose,Whole Blood 204 mg/dL (70-110)
[2023-01-15 06:51] VITALS: RESP 16; TEMP 98.6
--- NOTE | 2023-01-15 06:57 | ED ---
General Adult HPI - General Chief complaint: Recheck/Abnormal Lab/Rx Stated complaint: Hypoglycemia Time Seen by Provider: 01/15/23 06:45 Source: patient, EMS, RN notes reviewed Mode of arrival: EMS Limitations: no limitations - History of Present Illness Initial comments: 87-year-old male presents emergency department via EMS chief complaint of hyperglycemia. Patient reportedly was altered this morning which family called 911. Patient son have blood sugar at 52. Patient is given 1 amp blood sugar has improved patient only complaint now is that he is cold. He denies headache, dizziness, chest pain, shortness breath, fever, chills, cough or cold symptoms no abdominal pain no leg pain. Patient states he had a cardiac stent placed on the . - Related Data Home Medications Medication Instructions Recorded Confirmed Aspirin EC [Ecotrin Low Dose] 81 mg PO 1400 11/02/15 01/01/23 clonazePAM [KlonoPIN] 0.25 tab PO BID 11/02/15 12/31/22 Simvastatin [Zocor] 40 mg PO DAILY 11/03/15 12/31/22 glipiZIDE [Glucotrol] 10 mg PO AC-BID 11/03/15 01/01/23 Furosemide [Lasix] 20 mg PO QAM 11/06/22 01/01/23 Metoprolol Succinate (ER) [Toprol 25 mg PO DAILY 11/06/22 12/31/22 XL] amLODIPine [Norvasc] 10 mg PO 1400 11/06/22 12/31/22 hydrALAZINE HCL [Apresoline] 25 mg PO TID 11/06/22 12/31/22 lisinopriL 2.5 mg PO QAM 11/06/22 12/31/22 Vitamin B Complex W/ Vit C 1 tab PO DAILY PRN 12/31/22 12/31/22 buPROPion HCL [buPROPion HCL SR] 100 mg PO TID 12/31/22 12/31/22 Previous Rx's Medication Instructions Recorded Clopidogrel [Plavix] 75 mg PO DAILY #90 tab 11/08/22 Cephalexin [Keflex] 500 mg PO Q8HR #21 cap 01/15/23 Allergies Allergy/AdvReac Type Severity Reaction Status Date / Time No Known Allergies Allergy Verified 01/01/23 10:56 Review of Systems ROS Statement: Those systems with pertinent positive or pertinent negative responses have been documented in the HPI. ROS Other: All systems not noted in ROS Statement are negative. Past Medical History Past Medical History: Coronary Artery Disease (CAD), Cancer, Diabetes Mellitus, Hypertension Additional Past Medical History / Comment(s): kidney disease, urinary retention- self caths atleast bid to help completely empty bladder but urinates throughout the day, skin ca, self cath himself morning and night for the last ten years. History of Any Multi-Drug Resistant Organisms: None Reported Past Surgical History: Appendectomy, Heart Catheterization With Stent Additional Past Surgical History / Comment(s): Bilateral cataract removal and lens implants, left knee surgery with Dr. Brooks in the 1960s, electric shock treatment for depression,lt carpel tunnel,skin CA removed Past Anesthesia/Blood Transfusion Reactions: No Reported Reaction Date of Last Stent Placement:: Past Psychological History: Anxiety, Depression Smoking Status: Former smoker Past Alcohol Use History: None Reported Past Drug Use History: None Reported - Past Family History Mother History Unknown: Yes Family Medical History: Cancer Father History Unknown: Yes Family Medical History: Cancer Additional Family Medical History / Comment(s): lung CA General Exam Limitations: no limitations General appearance: alert, in no apparent distress Head exam: Present: atraumatic, normocephalic, normal inspection Eye exam: Present: normal appearance, PERRL, EOMI. Absent: scleral icterus, conjunctival injection, periorbital swelling ENT exam: Present: normal exam, mucous membranes moist Neck exam: Present: normal inspection, full ROM. Absent: tenderness, meningismus, lymphadenopathy Respiratory exam: Present: normal lung sounds bilaterally. Absent: respiratory distress, wheezes, rales, rhonchi, stridor Cardiovascular Exam: Present: regular rate, normal rhythm, normal heart sounds. Absent: systolic murmur, diastolic murmur, rubs, gallop, clicks GI/Abdominal exam: Present: soft, normal bowel sounds. Absent: distended, tenderness, guarding, rebound, rigid Course Vital Signs 01/15/23 01/15/23 01/15/23 06:45 07:20 08:31 Temperature 98.6 F Pulse Rate 83 82 80 Respiratory 16 16 16 Rate Blood Pressure 161/99 180/76 176/87 O2 Sat by Pulse 100 99 99 Oximetry 01/15/23 01/15/23 01/15/23 09:02 10:04 10:24 Temperature Pulse Rate 89 73 85 Respiratory 16 16 16 Rate Blood Pressure 159/68 144/58 O2 Sat by Pulse 98 100 99 Oximetry 01/15/23 11:01 Temperature 98.6 F Pulse Rate 87 Respiratory 16 Rate Blood Pressure 133/75 O2 Sat by Pulse 99 Oximetry EKG Findings - EKG Comments: EKG Findings:: EKG performed at 6:51 sinus rhythm with first-degree block rate of 82 NV 2:30 one QRS 117 QT/QTC 3 cm 426 and Q waves in lead 3, PVC - EKG Results: EKG: interpreted by KILLIAN Medical Decision Making - Medical Decision Making Was pt. sent in by a medical professional or institution (, PA, MIXING MACHINE TENDER, urgent care, hospital, or skilled nursing...) When possible be specific @ -No Did you speak to anyone other than the patient for history (EMS, parent, family, police, friend...)? What history was obtained from this source @ -EMS Did you review nursing and triage notes (agree or disagree)? Why? @ -I reviewed and agree with nursing and triage notes Were old charts reviewed (outside hosp., previous admission, EMS record, old EKG, old radiological studies, urgent care reports/EKG's, skilled nursing records)? Report findings @ -Prior laboratory studies reviewed Differential Diagnosis (chest pain, altered mental status, abdominal pain women, abdominal pain men, vaginal bleeding, weakness, fever, dyspnea, syncope, headache, dizziness, GI bleed, back pain, seizure, CVA, palpatations, mental health, musculoskeletal)? @ -nDifferential Weakness: Hypoglycemia, shock, sepsis, hyponatremia, anemia, infection, NC, ETOH, adverse medicine reaction, overdose, stroke, this is not meant to be an all-inclusive list. EKG interpreted by me (3pts min.). @ -As above X-rays interpreted by me (1pt min.). @ -Chest x-ray shows bibasilar atelectasis CT interpreted by me (1pt min.). @ -CT her brain does not show any acute process U/S interpreted by me (1pt. min.). @ -None done What testing was considered but not performed or refused? (CT, X-rays, U/S, labs)? Why? @ -None What meds were considered but not given or refused? Why? @ -None Did you discuss the management of the patient with other professionals (professionals i.e. , PA, MIXING MACHINE TENDER, lab, RT, psych nurse, social services aide, sprigger, teacher, policy officer, watch case polisher)? Give summary @ -No Was smoking cessation discussed for >3mins.? @ -No Was critical care preformed (if so, how long)? @ -No Were there social determinants of health that impacted care today? How? ( Homelessness, low income, unemployed, alcoholism, drug addiction, transportation, low edu. Level, literacy, decrease access to med. care, usp, rehab)? @ -No Was there de-escalation of care discussed even if they declined (Discuss DNR or withdrawal of care, Hospice)? DNR status @ -No What co-morbidities impacted this encounter? (DM, HTN, Smoking, COPD, CAD, Cancer, CVA, ARF, Chemo, Hep., AIDS, mental health diagnosis, sleep apnea, morbid obesity)? @ -Diabetes and heart disease Was patient admitted / discharged? Hospital course, mention meds given and route, prescriptions, significant lab abnormalities, going to OR and other pertinent info. @ -Discharge I had a long discussion with patient, patient's and son the room patient follows found to be hypoglycemic symptoms have resolved after receiving amp of dextrose from EMS. Patient tolerated standing, and bleeding he was able to self cath as he normally does. Patient is a 14 white cells in his urinalysis. Son was concerned that he is more weak but he was back to his baseline we did a discussion regarding his diabetic medications as she's been taken his glipizide in the evening and having hypoglycemic events. Patient will hold his night time glipizide will reevaluate PCP and his medications. Appointment was made prior to discharge. Undiagnosed new problem with uncertain prognosis? @ -No Drug Therapy requiring intensive monitoring for toxicity (Heparin, Nitro, Insulin, Cardizem)? @ -No Were any procedures done? @ -No Diagnosis/symptom? @ -Hyperglycemic, UTI Acute, or Chronic, or Acute on Chronic? @ -Acute Uncomplicated (without systemic symptoms) or Complicated (systemic symptoms)? @ -Complicated Side effects of treatment? @ -No Exacerbation, Progression, or Severe Exacerbation? @ -No Poses a threat to life or bodily function? How? (Chest pain, USA, NC, pneumonia, PE, COPD, DKA, ARF, appy, cholecystitis, CVA, Diverticulitis, Homicidal, Suicidal, threat to staff... and all critical care pts) @ -No - Lab Data Result diagrams: 01/15/23 06:59 01/15/23 06:59 Lab Results 01/15/23 01/15/23 01/15/23 Range/Units 06:42 06:59 06:59 WBC 4.3 (3.8-10.6) k/uL RBC 3.09 L (4.30-5.90) m/uL Hgb 10.6 L (13.0-17.5) gm/dL Hct 30.5 L (39.0-53.0) % MCV 98.5 (80.0-100.0) fL MCH 34.3 (25.0-35.0) pg MCHC 34.8 (31.0-37.0) g/dL RDW 12.8 (11.5-15.5) % Plt Count 218 (150-450) k/uL MPV 7.3 Neutrophils % 61 % Lymphocytes % 28 % Monocytes % 6 % Eosinophils % 1 % Basophils % 0 % Neutrophils # 2.6 (1.3-7.7) k/uL Lymphocytes # 1.2 (1.0-4.8) k/uL Monocytes # 0.3 (0-1.0) k/uL Eosinophils # 0.0 (0-0.7) k/uL Basophils # 0.0 (0-0.2) k/uL PT 10.2 (9.0-12.0) sec INR 1.0 (<1.2) APTT 22.4 (22.0-30.0) sec Sodium (137-145) mmol/L Potassium (3.5-5.1) mmol/L Chloride (98-107) mmol/L Carbon Dioxide (22-30) mmol/L Anion Gap mmol/L BUN (9-20) mg/dL Creatinine (0.66-1.25) mg/dL Est GFR (CKD-EPI)AfAm (>60 ml/min/1.73 sqM) Est GFR (CKD-EPI)NonAf (>60 ml/min/1.73 sqM) Glucose (74-99) mg/dL POC Glucose (mg/dL) 204 H (70-110) mg/dL POC Glu Broom Man ID Phuong Lizarraga Plasma Lactic Acid Mic (0.7-2.0) mmol/L Calcium (8.4-10.2) mg/dL Magnesium (1.6-2.3) mg/dL Total Bilirubin (0.2-1.3) mg/dL AST (17-59) U/L ALT (4-49) U/L Alkaline Phosphatase (38-126) U/L Total Protein (6.3-8.2) g/dL Albumin (3.5-5.0) g/dL Urine Color Urine Appearance (Clear) Urine pH (5.0-8.0) Ur Specific [place] (1.001-1.035) Urine Protein (Negative) Urine Glucose (UA) (Negative) Urine Ketones (Negative) Urine Blood (Negative) Urine Nitrite (Negative) Urine Bilirubin (Negative) Urine Urobilinogen (<2.0) mg/dL Ur Leukocyte Esterase (Negative) Urine RBC (0-5) /hpf Urine WBC (0-5) /hpf Ur Squamous Epith Cells (0-4) /hpf Urine Bacteria (None) /hpf Hyaline Casts (0-2) /lpf Urine Mucus (None) /hpf 01/15/23 01/15/23 01/15/23 Range/Units 06:59 06:59 07:17 WBC (3.8-10.6) k/uL RBC (4.30-5.90) m/uL Hgb (13.0-17.5) gm/dL Hct (39.0-53.0) % MCV (80.0-100.0) fL MCH (25.0-35.0) pg MCHC (31.0-37.0) g/dL RDW (11.5-15.5) % Plt Count (150-450) k/uL MPV Neutrophils % % Lymphocytes % % Monocytes % % Eosinophils % % Basophils % % Neutrophils # (1.3-7.7) k/uL Lymphocytes # (1.0-4.8) k/uL Monocytes # (0-1.0) k/uL Eosinophils # (0-0.7) k/uL Basophils # (0-0.2) k/uL PT (9.0-12.0) sec INR (<1.2) APTT (22.0-30.0) sec Sodium 137 (137-145) mmol/L Potassium 4.5 (3.5-5.1) mmol/L Chloride 107 (98-107) mmol/L Carbon Dioxide 21 L (22-30) mmol/L Anion Gap 9 mmol/L BUN 44 H (9-20) mg/dL Creatinine 1.96 H (0.66-1.25) mg/dL Est GFR (CKD-EPI)AfAm 34 (>60 ml/min/1.73 sqM) Est GFR (CKD-EPI)NonAf 30 (>60 ml/min/1.73 sqM) Glucose 191 H (74-99) mg/dL POC Glucose (mg/dL) 200 H (70-110) mg/dL POC Glu Broom Man ID Evette Rojas Plasma Lactic Acid Mic 1.2 (0.7-2.0) mmol/L Calcium 8.4 (8.4-10.2) mg/dL Magnesium 2.4 H (1.6-2.3) mg/dL Total Bilirubin 0.4 (0.2-1.3) mg/dL AST 37 (17-59) U/L ALT 26 (4-49) U/L Alkaline Phosphatase 63 (38-126) U/L Total Protein 6.5 (6.3-8.2) g/dL Albumin 3.9 (3.5-5.0) g/dL Urine Color Urine Appearance (Clear) Urine pH (5.0-8.0) Ur Specific Kel[place] (1.001-1.035) Urine Protein (Negative) Urine Glucose (UA) (Negative) Urine Ketones (Negative) Urine Blood (Negative) Urine Nitrite (Negative) Urine Bilirubin (Negative) Urine Urobilinogen (<2.0) mg/dL Ur Leukocyte Esterase (Negative) Urine RBC (0-5) /hpf Urine WBC (0-5) /hpf Ur Squamous Epith Cells (0-4) /hpf Urine Bacteria (None) /hpf Hyaline Casts (0-2) /lpf Urine Mucus (None) /hpf 01/15/23 Range/Units 09:04 WBC (3.8-10.6) k/uL RBC (4.30-5.90) m/uL Hgb (13.0-17.5) gm/dL Hct (39.0-53.0) % MCV (80.0-100.0) fL MCH (25.0-35.0) pg MCHC (31.0-37.0) g/dL RDW (11.5-15.5) % Plt Count (150-450) k/uL MPV Neutrophils % % Lymphocytes % % Monocytes % % Eosinophils % % Basophils % % Neutrophils # (1.3-7.7) k/uL Lymphocytes # (1.0-4.8) k/uL Monocytes # (0-1.0) k/uL Eosinophils # (0-0.7) k/uL Basophils # (0-0.2) k/uL PT (9.0-12.0) sec INR (<1.2) APTT (22.0-30.0) sec Sodium (137-145) mmol/L Potassium (3.5-5.1) mmol/L Chloride (98-107) mmol/L Carbon Dioxide (22-30) mmol/L Anion Gap mmol/L BUN (9-20) mg/dL Creatinine (0.66-1.25) mg/dL Est GFR (CKD-EPI)AfAm (>60 ml/min/1.73 sqM) Est GFR (CKD-EPI)NonAf (>60 ml/min/1.73 sqM) Glucose (74-99) mg/dL POC Glucose (mg/dL) (70-110) mg/dL POC Glu Broom Man ID Plasma Lactic Acid Mic (0.7-2.0) mmol/L Calcium (8.4-10.2) mg/dL Magnesium (1.6-2.3) mg/dL Total Bilirubin (0.2-1.3) mg/dL AST (17-59) U/L ALT (4-49) U/L Alkaline Phosphatase (38-126) U/L Total Protein (6.3-8.2) g/dL Albumin (3.5-5.0) g/dL Urine Color Colorless Urine Appearance Clear (Clear) Urine pH 5.5 (5.0-8.0) Ur Specific [place] 1.006 (1.001-1.035) Urine Protein Trace H (Negative) Urine Glucose (UA) 1+ H (Negative) Urine Ketones Negative (Negative) Urine Blood Negative (Negative) Urine Nitrite Negative (Negative) Urine Bilirubin Negative (Negative) Urine Urobilinogen <2.0 (<2.0) mg/dL Ur Leukocyte Esterase Small H (Negative) Urine RBC <1 (0-5) /hpf Urine WBC 14 H (0-5) /hpf Ur Squamous Epith Cells 2 (0-4) /hpf Urine Bacteria Many H (None) /hpf Hyaline Casts 1 (0-2) /lpf Urine Mucus Rare H (None) /hpf Disposition Clinical Impression: UTI (urinary tract infection), Hypoglycemia Disposition: HOME SELF-CARE Condition: Stable Instructions (If sedation given, give patient instructions): Hypoglycemia in a Person with Diabetes (ED) Additional Instructions: Please return to the Emergency Department if symptoms worsen or any other concerns. These follow-up with your primary care physician for recheck of your diabetic medications. Please monitor blood sugar 3 times daily. Please hold glipizide at nighttime Prescriptions: Cephalexin [Keflex] 500 mg PO Q8HR #21 cap Is patient prescribed a controlled substance at d/c from ED?: No Referrals: Shreyas Coffey Jr, DO [Primary Care Provider] - 01/21/23 9:15 am (Appointment with MIXING MACHINE TENDER Angelita Goyal) [facility],Clinic [Family Provider] - 01/17/23 2:00 pm Time of Disposition: 10:33
[2023-01-15 07:19] LABS: Glucose,Whole Blood 200 mg/dL (70-110)
[2023-01-15 07:19] LABS: Albumin 3.9 g/dL (3.5-5.0); Calcium 8.4 mg/dL (8.4-10.2); Magnesium 2.4 mg/dL (1.6-2.3); Potassium 4.5 mmol/L (3.5-5.1); Total Bilirubin 0.4 mg/dL (0.2-1.3); Total Protein 6.5 g/dL (6.3-8.2)
[2023-01-15 07:24] LABS: Partial Thromboplastin Time 22.4 sec (22.0-30.0); Prothrombin Time 10.2 sec (9.0-12.0)
--- NOTE | 2023-01-15 07:36 | XR ---
EXAMINATION TYPE: XR chest 2V DATE OF EXAM: 01/15/2023 COMPARISON: Prior chest x-ray November 02, 2015 HISTORY: Weakness. TECHNIQUE: Frontal and lateral views of the chest are obtained. FINDINGS: Mild Increased interstitial markings bilaterally with bibasilar opacities on current study . The cardiac silhouette size is upper limits of normal with atherosclerotic thoracic aorta. Multipl e old posterior left rib fractures are seen. Overlying EKG leads are noted. IMPRESSION: Chronic changes with patchy bibasilar acute infiltrate and/or atelectasis.
[2023-01-15 07:51] LABS: Basophils % (A) 0 %; Eosinophils % (A) 1 %; HCT 30.5 % (39.0-53.0); HGB 10.6 gm/dL (13.0-17.5); Lymphocytes # (A) 1.2 k/uL (1.0-4.8); Lymphocytes % (A) 28 %; MCH 34.3 pg (25.0-35.0); MCHC 34.8 g/dL (31.0-37.0); MCV 98.5 fL (80.0-100.0); Mean Platelet Volume 7.3; Monocytes # (A) 0.3 k/uL (0-1.0); Monocytes % (A) 6 %; Neutrophils # (A) 2.6 k/uL (1.3-7.7); Neutrophils % (A) 61 %; Platelet Count 218 k/uL (150-450); RBC 3.09 m/uL (4.30-5.90); RDW 12.8 % (11.5-15.5); WBC 4.3 k/uL (3.8-10.6)
--- NOTE | 2023-01-15 09:21 | CT ---
EXAMINATION TYPE: CT brain wo con CT DLP: 1217.5 mGycm, Automated exposure control for dose reduction was used. DATE OF EXAM: 01/15/2023 8:42 AM COMPARISON: None. CLINICAL INDICATION:Male, 87 years old with history of ams, TECHNIQUE: Brain: Axial CT images of the brain were obtained with coronal and sagittal reformats created and rev iewed. Contrast used: None. Oral contrast used: None. FINDINGS: Brain: Extra-axial spaces: No abnormal extra-axial fluid collections. Ventricular system: Dilatation in proportion to cerebral atrophy. Cerebral parenchyma: Cerebral atrophy. No acute intraparenchymal hemorrhage or mass effect. The medina -white junction is well differentiated. Scattered hypoattenuating areas are seen within the white mat ter. Cerebellum: Unremarkable. Mass effect: No evidence of midline shift. Intracranial vasculature: Atherosclerotic calcifications of the intracranial vessels. Soft tissues: Normal. Calvarium/osseous structures: No depressed skull fracture. Paranasal sinuses and mastoid air cells: Mild scattered paranasal sinus disease. Visualized orbits: Bilateral aphakia IMPRESSION: 1. No acute intracranial process. 2. Nonspecific white matter changes, likely secondary to chronic small vessel ischemic disease.
[2023-01-15 09:43] LABS: Appearance,Urine Clear (Clear); Bacteria,Urine Many /hpf; Bilirubin,Urine Negative (Negative); Blood,Urine Negative (Negative); Color,Urine Colorless; Glucose,Urine (UA) 1+ (Negative); Hyaline Casts,Urine 1 /lpf (0-2); Ketones,Urine Negative (Negative); Leukocyte Esterase,Urine Small (Negative); Mucus,Urine Rare /hpf; Nitrite,Urine Negative (Negative); PH, Urine 5.5 (5.0-8.0); Protein,Urine Trace (Negative); RBC,Urine <1 /hpf (0-5); Specific Gravity,Urine 1.006 (1.001-1.035); Squamous Epithelial Cell,Urine 2 /hpf (0-4); Urobilinogen,Urine <2.0 mg/dL (<2.0); WBC,Urine 14 /hpf (0-5)
[2023-01-15 11:05] VITALS: BP 133/75; PULSE 87
== END 2023-01-15 11:05 | disposition home or self-care (01) ==
LOC: EC 06:40
DX: E11.649 Type 2 diabetes mellitus with hypoglycemia without coma (principal); N39.0 Urinary tract infection, site not specified; I25.10 Atherosclerotic heart disease of native coronary artery without angina pectoris; I10 Essential (primary) hypertension; F41.9 Anxiety disorder, unspecified; Z90.89 Acquired absence of other organs; Z95.5 Presence of coronary angioplasty implant and graft; Z87.891 Personal history of nicotine dependence; Z79.84 Long term (current) use of oral hypoglycemic drugs; Z79.82 Long term (current) use of aspirin
CPT/HCPCS: 36415; 70450; 71046; 80053; 81001; 83605; 83735; 85025; 85610; 85730; 87086; 93005; 99285

== ENCOUNTER → 2023-10-06 | Outpatient (CLI) | payer MEDICARE ==
[2023-10-06 15:24] LABS: BUN/Creat Ratio 20.76 Ratio (12.00-20.00); Blood Urea Nitrogen 43.6 mg/dL (9.0-27.0); Calcium 9.7 mg/dL (8.7-10.3); Carbon Dioxide 23.4 mmol/L (21.6-31.8); Chloride 102 mmol/L (96-109); Glucose 178 mg/dL (70-110); Potassium 5.8 mmol/L (3.5-5.5); Sodium 136 mmol/L (135-145)
== END | disposition home or self-care (01) ==
LOC: LABWHC1 08:15
PROVIDERS: ATTEND Internal Medicine Interventional Cardiology
DX: N18.9 Chronic kidney disease, unspecified (principal)
CPT/HCPCS: 36415; 80048

== ENCOUNTER → 2023-10-15 | Outpatient (CLI) | payer MEDICARE ==
[2023-10-15 13:46] LABS: ALT 18 U/L (4-49); AST 24 U/L (17-59); African American GFR (CKD) 34 (>60 ml/min/1.73 sqM); Albumin 4.3 g/dL (3.5-5.0); Albumin/Globulin Ratio 1.7; Alkaline Phosphatase 68 U/L (38-126); Anion Gap 11 mmol/L; Blood Urea Nitrogen 40 mg/dL (9-20); Calcium 9.3 mg/dL (8.4-10.2); Carbon Dioxide 27 mmol/L (22-30); Chloride 103 mmol/L (98-107); Globulin 2.6 g/dL; Glucose 164 mg/dL (74-99); Non-African American GFR(CKD) 29 (>60 ml/min/1.73 sqM); Potassium 5.6 mmol/L (3.5-5.1); Sodium 141 mmol/L (137-145); Total Bilirubin 0.4 mg/dL (0.2-1.3); Total Protein 6.9 g/dL (6.3-8.2)
== END | disposition home or self-care (01) ==
LOC: LABWHC1 12:28
PROVIDERS: ATTEND Internal Medicine Interventional Cardiology
DX: E87.5 Hyperkalemia (principal)
CPT/HCPCS: 36415; 80053